=== PATIENT | male | born 1970 | race Caucasian/White ===

== ENCOUNTER 2017-07-14 23:16 | Inpatient (IN) | payer MEDICARE ==
[2017-07-14] MEDS ORDERED: Sodium Chloride 0.9% 1000 ML 1,000 ML ONE ×2 (23:32→23:57)
[2017-07-14] MEDS ORDERED: FEVERALL 650 MG PR ONE (23:40)
--- NOTE | 2017-07-14 23:46 | ERPHSYRPT ---
- History of Present Illness Time Seen by Provider: 07/14/17 23:40 Source: patient, family, EMS Physician History: PATIENT WITH A HISTORY OF TYPE 2 DIABETES, AND ASTHMA FAMILY CALLED EMS FOR SYMPTOMS LETHARGY, FEVER, CHILLS AND DIARRHEA TODAY. HAS HISTORY OF RIGHT FOOT TRANSMETATARSAL AMPUTATION. HE DENIES COUGH, CHEST PAIN, DYSPNEA. Timing/Duration: today Severity: severe Associated Symptoms: chills, fever Allergies/Adverse Reactions: No Known Drug Allergies Allergy (Verified 05/06/17 12:11) Home Medications: Clonazepam 0.5 mg [Klonopin 0.5 MG] 1 mg PO TID PRN 12/11/14 [History] Pravastatin Sodium 20 mg PO HS 12/11/14 [History] Fenofibrate Nanocrystallized [Fenofibrate] 1 tab PO DAILY 05/07/17 [History] Gabapentin 300 mg PO TID 05/07/17 [History] Insulin Degludec [Tresiba Flextouch U-100] 70 units SQ DAILY 05/07/17 [History] Liraglutide [Victoza 2-Jethro] 1.8 units SQ DAILY 05/07/17 [History] Montelukast Sodium [Singulair] 10 mg PO DAILY 05/07/17 [History] Insulin Lispro [Humalog Kwikpen] unit SQ 07/14/17 [History] Hx Tetanus, Diphtheria Vaccination/Date Given: Yes Hx Influenza Vaccination/Date Given: Yes (2010) Hx Pneumococcal Vaccination/Date Given: Yes (2010) - Review of Systems Constitutional: Fever, Chills, Lethargy Eyes: No Symptoms Ears, Nose, & Throat: No Symptoms Respiratory: No Symptoms Cardiac: No Symptoms Abdominal/Gastrointestinal: No Symptoms Genitourinary Symptoms: No Symptoms Musculoskeletal: No Symptoms Neurological: Lethargy Psychological: No Symptoms Endocrine: No Symptoms - Past Medical History Pertinent Past Medical History: Yes Neurological History: Peripheral Neuropathy ENT History: No Pertinent History Cardiac History: Peripheral Vascular Disease Respiratory History: Pneumonia Endocrine Medical History: Diabetes Type II Musculoskeletal History: Other GI Medical History: No Pertinent History, Polyps History: No Pertinent History Psycho-Social History: Anxiety, Depression Male Reproductive Disorders: Other Other Medical History: RIGHT FOREFOOT AMPUTATION 2014 - Past Surgical History Past Surgical History: Yes Neuro Surgical History: No Pertinent History Cardiac: No Pertinent History Respiratory: No Pertinent History Gastrointestinal: No Pertinent History Genitourinary: No Pertinent History Musculoskeletal: No Pertinent History Male Surgical History: No Pertinent History Other Surgical History: Right heel cut open down to the bone. - Social History Smoking Status: Former smoker Exposure to second hand smoke: Yes Drug Use: none - Nursing Vital Signs Nursing Vital Signs: Initial Vital Signs Temperature 102.8 F 07/14/17 23:22 Pulse Rate 127 H 07/14/17 23:22 Respiratory Rate 24 07/14/17 23:22 Blood Pressure 144/84 07/14/17 23:22 O2 Sat by Pulse Oximetry 97 07/14/17 23:22 Pain Scale Pain Intensity 0 - Physical Exam General Appearance: lethargy, other (ALERT TO NAME) Ears, Nose, Throat Exam: normal ENT inspection Neck Exam: normal inspection Respiratory Exam: normal breath sounds Cardiovascular Exam: normal heart sounds, tachycardia Gastrointestinal/Abdomen Exam: soft, normal bowel sounds (NONTENDER) Back Exam: normal inspection, normal range of motion Extremity Exam: other (RIGHT FOOT ERYTHEMATOUS, MARKED WARMTH DECUBITUS 3CM X 3CM DORSAL TRANSMETATARAL SITE) Neurologic Exam: alert (TO PERSON AND PLACE) SpO2 Interpretation: normal, O2 applied SpO2: 94 Ordered Tests: Active Orders 24 hr Category Date Time Status Bedrest ROUTINE Activity 07/15/17 02:56 Ordered Accucheck ACHS Care 07/15/17 02:53 Ordered Accucheck STAT Care 07/14/17 23:40 Active Admission/Status Order ROUTINE Care 07/15/17 02:54 Ordered Call Admit Doctor for Orders ON ADMISSION Care 07/15/17 02:56 Ordered Emergency Veterinarian STAT Care 07/14/17 23:41 Active Cath [Catheter-[place]] STAT Care 07/15/17 01:21 Active Code Status Order ROUTINE Care 07/15/17 02:54 Ordered EKG-ER Only STAT Care 07/14/17 23:40 Active IV Care Q6H Care 07/15/17 02:54 Ordered IV Insertion STAT Care 07/14/17 23:40 Active IV Insertion-2nd Peripheral STAT Care 07/14/17 23:40 Active Neuro Checks Q2H Care 07/15/17 02:53 Ordered Oxygen-ED Only NASAL CANNULA 2 lpm Care 07/14/17 23:40 Active Pulse Oximetry (ED) STAT Care 07/14/17 23:40 Active Telemetry ROUTINE Care 07/15/17 02:53 Ordered Vital Signs .[id number],q3omx2,q1hx2,[id number] Care 07/15/17 02:53 Ordered 2000 Calorie ADA Diet 07/15/17 Breakfast Ordered CHEST 1 VIEW (PORTABLE) Stat Exams 07/14/17 23:41 Taken ARTERIAL BLOOD GASES Stat Lab 07/14/17 23:51 Completed BLOOD CULTURE Stat Lab 07/14/17 23:50 Received CBC W DIFF Stat Lab 07/14/17 23:45 Completed CMP Stat Lab 07/14/17 23:45 Completed CULTURE,URINE Stat Lab 07/14/17 23:45 Received CULTURE,WOUND Stat Lab 07/15/17 02:01 Ordered Glucose Stat Lab 07/15/17 02:46 Ordered Lactic Acid Stat Lab 07/14/17 23:51 Completed Lactic Acid Stat Lab 07/15/17 02:22 Results MAGNESIUM Stat Lab 07/15/17 00:00 Completed Manual Differential NC Stat Lab 07/14/17 23:45 Completed PHOSPHOROUS Stat Lab 07/15/17 00:00 Completed PROTIME WITH INR Stat Lab 07/15/17 00:00 Completed TROPONIN Q3H Lab 07/15/17 00:00 Completed TROPONIN Q3H Lab 07/15/17 04:15 Ordered TROPONIN Q3H Lab 07/15/17 07:15 Ordered TROPONIN Q3H Lab 07/15/17 10:15 Ordered TROPONIN Q3H Lab 07/15/17 13:15 Ordered Oxygen NASAL CANNULA 2 lpm RT 07/15/17 02:53 Ordered Transfer Order Routine Transfer 07/15/17 Ordered Medication Summary Generic Name Dose Route Start Last Admin Trade Name Freq PRN Reason Stop Dose Admin Acetaminophen 650 mg 07/15/17 02:53 Tylenol 325 Mg PO 08/14/17 02:52 Q4H PRN PRN PAIN AND/OR FEVER Sodium Chloride 1,000 mls @ 999 mls/hr 07/14/17 23:45 07/15/17 00:07 Sodium Chloride 0.9% 1000 Ml IV 07/15/17 02:45 999 mls/hr .Q1H1M OLEGARIO Administration Insulin Human Regular 100 101 mls @ 10.1 mls/hr 07/15/17 01:15 07/15/17 01:17 units/ Sodium Chloride IV 08/14/17 01:14 10 units/hr .Q10H OLEGARIO 10.1 mls/hr 10 UNITS/HR Administration Sodium Chloride 1,000 mls @ 500 mls/hr 07/15/17 01:15 07/15/17 01:56 Sodium Chloride 0.9% 1000 Ml IV 08/14/17 01:14 500 mls/hr .Q2H OLEGARIO Administration Insulin Human Regular 100 101 mls @ 10.07 mls/hr 07/15/17 02:59 units/ Sodium Chloride IV 08/14/17 02:58 .Q10H2M PRN DKA/HYPERGYCEMIA Protocol 0.1 UNITS/KG/HR Piperacillin Sod/Tazobactam 100 mls @ 100 mls/hr 07/15/17 06:00 Sod 4.5 gm/ Dextrose IV 08/14/17 05:59 Q8HT OLEGARIO Sodium Chloride 1,000 mls @ 200 mls/hr 07/15/17 03:00 Sodium Chloride 0.9% 1000 Ml IV 08/14/17 02:59 .Q5H [facility] Vancomycin HCl 1 gm/ Sodium 250 mls @ 167 mls/hr 07/15/17 03:30 Chloride IV 08/14/17 03:29 Q24H [facility] Montelukast Sodium 10 mg 07/15/17 10:00 Singulair 10 Mg PO 08/14/17 09:59 DAILY [facility] Pantoprazole Sodium 40 mg 07/15/17 10:00 Protonix 40 Mg Iv IV 08/14/17 09:59 Q24H10 OLEGARIO Discontinued Medications Generic Name Dose Route Start Last Admin Trade Name Freq PRN Reason Stop Dose Admin Acetaminophen 650 mg 07/14/17 23:40 07/15/17 00:02 Feverall 650 Mg NC 07/14/17 23:41 650 mg STAT ONE Administration Acetaminophen Confirm 07/15/17 00:00 Feverall 650 Mg Administered 07/15/17 00:01 Dose 650 mg .ROUTE .STK-MED ONE Sodium Chloride Confirm 07/14/17 23:32 Sodium Chloride 0.9% 1000 Ml Administered 07/14/17 23:33 Dose 1,000 mls @ ud .ROUTE .STK-MED ONE Piperacillin Sod/Tazobactam 100 mls @ 200 mls/hr 07/15/17 00:43 07/15/17 00: 59 Sod 4.5 gm/ Dextrose IV 07/15/17 01:12 200 mls/hr STAT ONE Administration Dextrose Confirm 07/15/17 00:51 D5w 100ml Mini Bag 100 Ml Administered 07/15/17 00:52 Dose 100 mls @ ud IV .STK-MED ONE Sodium Chloride Confirm 07/15/17 01:03 Sodium Chloride 0.9% 100 Ml Ivpb Administered 07/15/17 01:04 Dose 100 mls @ ud IV .STK-MED ONE Sodium Chloride 1,000 mls @ 500 mls/hr 07/15/17 01:03 07/15/17 01:12 Sodium Chloride 0.9% 1000 Ml IV 07/15/17 03:02 500 mls/hr .Q2H STA Administration Ibuprofen 600 mg 07/15/17 01:50 07/15/17 01:58 Motrin 600 Mg PO 07/15/17 01:51 600 mg STAT ONE Administration Ibuprofen Confirm 07/15/17 01:57 Motrin 600 Mg Administered 07/15/17 01:58 Dose 600 mg .ROUTE .STK-MED ONE Insulin Human Regular 10 unit 07/15/17 01:00 07/15/17 01:17 Novolin R IV 07/15/17 01:01 10 unit STAT ONE Administration Insulin Human Regular Confirm 07/15/17 01:02 Novolin R Administered 07/15/17 01:03 Dose 100 unit .ROUTE .STK-MED ONE Insulin Human Regular Confirm 07/15/17 01:08 Novolin R Administered 07/15/17 01:09 Dose 10 unit .ROUTE .STK-MED ONE Ondansetron HCl Confirm 07/15/17 01:03 Zofran 4 Mg/2 Ml Vial Administered 07/15/17 01:04 Dose 4 mg .ROUTE .STK-MED ONE Ondansetron HCl 4 mg 07/15/17 01:05 07/15/17 01:06 Zofran 4 Mg/2 Ml Vial IV 07/15/17 01:06 4 mg STAT ONE Administration Piperacillin Sod/Tazobactam Sod Confirm 07/15/17 00:49 Zosyn Inj Administered 07/15/17 00:50 Dose 4.5 gm IV .STK-MED ONE Lab/Rad Data: Laboratory Result Diagrams 07/14/17 23:45 07/14/17 23:45 Laboratory Results 07/15/17 07/15/17 07/15/17 Range/Units 02:30 02:22 00:00 WBC (4.0-10.5) K/mm3 RBC (4.1-5.6) M/mm3 Hgb (12.5-18.0) gm/dl Hct (42-50) % MCV (78-100) fl MCH (26-32) pg MCHC (32-36) g/dl RDW (11.5-14.0) % Plt Count (150-450) K/mm3 MPV (6-9.5) fl Segmented Neutrophils (36.-66.) % Band Neutrophils (0.0-2.0) % Lymphocytes (Manual) (24-44) % Monocytes (Manual) (0.0-12.0) % Differential Comment Platelet Estimate (NORMAL) Polychromasia Anisocytosis INR (0.8-3.0) Puncture Site pCO2 (35-45) mmHg pO2 (75-100) mmHg Base Excess (-2.0-2.0) O2 Saturation (94-100) g/dF ABG pH (7.35-7.45) ABG HCO3 (22-28) ABG O2 Sat (Measured) (95-100) % Adolph Test A-a Gradient a/A Ratio Hemoglobin Carboxyhemoglobin (0.0-6.9) % THgb Methemoglobin (1.4-1.5) % Temperature C POC O2 Flow Rate % Sodium (136-145) mEq/L Potassium (3.5-5.1) mEq/L Chloride (98-107) mEq/L Carbon Dioxide (21-32) mEq/L Anion Gap (5-15) MEQ/L BUN (9-20) mg/dL Creatinine (0.55-1.30) mg/dl Estimated GFR ML/MIN Glucose 941 H* (70-110) MG/DL Lactic Acid 4.3 H (0.4-2.0) Calcium (8.5-10.1) mg/dL Phosphorus 4.7 (2.6-4.7) mg/dL Magnesium (1.8-2.4) mg/dL Total Bilirubin (0.2-1.0) mg/dL AST (15-37) U/L ALT (12-78) U/L Alkaline Phosphatase (46-116) U/L Troponin I (0.000-0.056) ng/ml Serum Total Protein (6.4-8.2) gm/dL Albumin (3.4-5.0) g/dL Influenza Type A Ag (NEGATIVE) Influenza Type B Ag (NEGATIVE) RSV (PCR) (Negative) 07/15/17 07/15/17 07/15/17 Range/Units 00:00 00:00 00:00 WBC (4.0-10.5) K/mm3 RBC (4.1-5.6) M/mm3 Hgb (12.5-18.0) gm/dl Hct (42-50) % MCV (78-100) fl MCH (26-32) pg MCHC (32-36) g/dl RDW (11.5-14.0) % Plt Count (150-450) K/mm3 MPV (6-9.5) fl Segmented Neutrophils (36.-66.) % Band Neutrophils (0.0-2.0) % Lymphocytes (Manual) (24-44) % Monocytes (Manual) (0.0-12.0) % Differential Comment Platelet Estimate (NORMAL) Polychromasia Anisocytosis INR 1.41 (0.8-3.0) Puncture Site pCO2 (35-45) mmHg pO2 (75-100) mmHg Base Excess (-2.0-2.0) O2 Saturation (94-100) g/dF ABG pH (7.35-7.45) ABG HCO3 (22-28) ABG O2 Sat (Measured) (95-100) % Adolph Test A-a Gradient a/A Ratio Hemoglobin Carboxyhemoglobin (0.0-6.9) % THgb Methemoglobin (1.4-1.5) % Temperature C POC O2 Flow Rate % Sodium (136-145) mEq/L Potassium (3.5-5.1) mEq/L Chloride (98-107) mEq/L Carbon Dioxide (21-32) mEq/L Anion Gap (5-15) MEQ/L BUN (9-20) mg/dL Creatinine (0.55-1.30) mg/dl Estimated GFR ML/MIN Glucose (70-110) MG/DL Lactic Acid (0.4-2.0) Calcium (8.5-10.1) mg/dL Phosphorus (2.6-4.7) mg/dL Magnesium 2.9 H (1.8-2.4) mg/dL Total Bilirubin (0.2-1.0) mg/dL AST (15-37) U/L ALT (12-78) U/L Alkaline Phosphatase (46-116) U/L Troponin I < 0.017 (0.000-0.056) ng/ml Serum Total Protein (6.4-8.2) gm/dL Albumin (3.4-5.0) g/dL Influenza Type A Ag (NEGATIVE) Influenza Type B Ag (NEGATIVE) RSV (PCR) (Negative) 07/14/17 07/14/17 07/14/17 Range/Units 23:51 23:51 23:50 WBC (4.0-10.5) K/mm3 RBC (4.1-5.6) M/mm3 Hgb (12.5-18.0) gm/dl Hct (42-50) % MCV (78-100) fl MCH (26-32) pg MCHC (32-36) g/dl RDW (11.5-14.0) % Plt Count (150-450) K/mm3 MPV (6-9.5) fl Segmented Neutrophils (36.-66.) % Band Neutrophils (0.0-2.0) % Lymphocytes (Manual) (24-44) % Monocytes (Manual) (0.0-12.0) % Differential Comment Platelet Estimate (NORMAL) Polychromasia Anisocytosis INR (0.8-3.0) Puncture Site LEFT BRACHIAL pCO2 56 H (35-45) mmHg pO2 71 L (75-100) mmHg Base Excess 4.2 H (-2.0-2.0) O2 Saturation 93.6 L (94-100) g/dF ABG pH 7.35 (7.35-7.45) ABG HCO3 30.9 H* (22-28) ABG O2 Sat (Measured) 97.0 (95-100) % Adolph Test NOT APPLICABLE A-a Gradient 116 a/A Ratio 0.38 Hemoglobin 10.9 Carboxyhemoglobin 2.3 (0.0-6.9) % THgb Methemoglobin 1.2 L (1.4-1.5) % Temperature 37.0 C POC O2 Flow Rate 36 % Sodium (136-145) mEq/L Potassium 4.1 (3.5-5.1) mEq/L Chloride (98-107) mEq/L Carbon Dioxide (21-32) mEq/L Anion Gap (5-15) MEQ/L BUN (9-20) mg/dL Creatinine (0.55-1.30) mg/dl Estimated GFR ML/MIN Glucose (70-110) MG/DL Lactic Acid 2.4 H (0.4-2.0) Calcium (8.5-10.1) mg/dL Phosphorus (2.6-4.7) mg/dL Magnesium (1.8-2.4) mg/dL Total Bilirubin (0.2-1.0) mg/dL AST (15-37) U/L ALT (12-78) U/L Alkaline Phosphatase (46-116) U/L Troponin I (0.000-0.056) ng/ml Serum Total Protein (6.4-8.2) gm/dL Albumin (3.4-5.0) g/dL Influenza Type A Ag NEGATIVE (NEGATIVE) Influenza Type B Ag NEGATIVE (NEGATIVE) RSV (PCR) NEGATIVE (Negative) 07/14/17 07/14/17 Range/Units 23:45 23:45 WBC 6.0 (4.0-10.5) K/mm3 RBC 4.96 (4.1-5.6) M/mm3 Hgb 12.7 (12.5-18.0) gm/dl Hct 46.6 (42-50) % MCV 94.0 (78-100) fl MCH 25.6 L (26-32) pg MCHC 27.3 L (32-36) g/dl RDW 15.6 H (11.5-14.0) % Plt Count 192 (150-450) K/mm3 MPV 12.9 H (6-9.5) fl Segmented Neutrophils 81 H (36.-66.) % Band Neutrophils 3 H (0.0-2.0) % Lymphocytes (Manual) 9 L (24-44) % Monocytes (Manual) 7 (0.0-12.0) % Differential Comment ABNORMAL Platelet Estimate NORMAL (NORMAL) Polychromasia 1+ Anisocytosis 1+ INR (0.8-3.0) Puncture Site pCO2 (35-45) mmHg pO2 (75-100) mmHg Base Excess (-2.0-2.0) O2 Saturation (94-100) g/dF ABG pH (7.35-7.45) ABG HCO3 (22-28) ABG O2 Sat (Measured) (95-100) % Adolph Test A-a Gradient a/A Ratio Hemoglobin Carboxyhemoglobin (0.0-6.9) % THgb Methemoglobin (1.4-1.5) % Temperature C POC O2 Flow Rate % Sodium 134 L (136-145) mEq/L Potassium 5.1 (3.5-5.1) mEq/L Chloride 90 L (98-107) mEq/L Carbon Dioxide 32.5 H (21-32) mEq/L Anion Gap 16.4 H (5-15) MEQ/L BUN 32 H (9-20) mg/dL Creatinine 2.49 H (0.55-1.30) mg/dl Estimated GFR 30 ML/MIN Glucose 1390 H* (70-110) MG/DL Lactic Acid (0.4-2.0) Calcium 9.7 (8.5-10.1) mg/dL Phosphorus (2.6-4.7) mg/dL Magnesium (1.8-2.4) mg/dL Total Bilirubin 0.30 (0.2-1.0) mg/dL AST 14 L (15-37) U/L ALT 18 (12-78) U/L Alkaline Phosphatase 134 H (46-116) U/L Troponin I (0.000-0.056) ng/ml Serum Total Protein 8.2 (6.4-8.2) gm/dL Albumin 2.4 L (3.4-5.0) g/dL Influenza Type A Ag (NEGATIVE) Influenza Type B Ag (NEGATIVE) RSV (PCR) (Negative) - Progress Progress Note: 07/15/17 01:31 PLACED ONTO SEPSIS PROTOCOL AT 2340 NORMAL SALINE 100MG/30ML. INFUSED 3LITERS OVER 1 HOUR, LACTIC ACID 2.4, ZOSYN 4.5GM, VANCOMYCIN 1GM IVPB AFTER 2 SETS OF BLOOD CULTURES OBTAINED, GLUCOSE -1390 GIVEN INSULIN REGULAR 10 UNITS IV BOLUS FOLLOWED BY INSULIN REGULAR INFUSION AT 10 UNITS/HR. - Departure Time of Disposition: 01:15 Departure Disposition: In-patient Admission Clinical Impression: HYPEROSMOLAR HYPERGLYCEMIA STATE, SEPSIS, INFECTED RIGHT FOOT DECUBITUS ULCER Condition: Critical Critical Care Time: No Critical Care Time(excluding separately billable procedures): ___ minutes (90) Referrals: DEYVI ARDON [Primary Care Provider] -
[2017-07-14] MEDS: Sodium Chloride 0.9% 1000 ML 1,000 ML IV SCH (23:56)
[2017-07-15] MEDS ORDERED: FEVERALL 650 MG ONE
[2017-07-15 00:01] LABS: Mean Corpuscular Hemoglobin 25.6 pg (26-32); Mean Platelet Volume 12.9 fl (6-9.5); Platelet Count 192 K/mm3 (150-450); Red Blood Count 4.96 M/mm3 (4.1-5.6); Red Cell Distribution Width 15.6 % (11.5-14.0)
[2017-07-15 00:02] LABS: A-aADO2 116; ARTERIAL BLOOD GAS BASE EXCESS 4.2 (-2.0-2.0); ARTERIAL BLOOD GAS FIO2 36 %; ARTERIAL BLOOD GAS PO2 71 mmHg (75-100); ARTERIAL BLOOD GAS pH 7.35 (7.35-7.45)
[2017-07-15 00:05] LABS: Lactic Acid 2.4 (0.4-2.0)
[2017-07-15] MEDS: Sodium Chloride 0.9% 1000 ML 1,000 ML IV SCH (00:07)
[2017-07-15 00:28] LABS: ALBUMIN 2.4 g/dL (3.4-5.0); ANION GAP 16.4 MEQ/L (5-15); BILIRUBIN,TOTAL 0.3 mg/dL (0.2-1.0); Carbon Dioxide 32.5 mEq/L (21-32); Potassium 5.1 mEq/L (3.5-5.1); Total Protein 8.2 gm/dL (6.4-8.2)
[2017-07-15] MEDS ORDERED: Sodium Chloride 0.9% 1000 ML 2,000 ML ONE (00:42)
[2017-07-15] MEDS ORDERED: Zosyn INJ 4.5 GM in D5w 100ML Mini Bag 100 ML 100 ML IV ONE (00:43)
[2017-07-15] MEDS ORDERED: Zosyn INJ IV ONE (00:49)
[2017-07-15] MEDS ORDERED: D5w 100ML Mini Bag 100 ML 100 ML IV ONE (00:51)
[2017-07-15] MEDS ORDERED: NovoLIN R IV ONE (01:00)
[2017-07-15] MEDS ORDERED: NovoLIN R ONE ×2 (01:02→01:08)
[2017-07-15] MEDS ORDERED: Zofran 4 MG/2 ML VIAL ONE (01:03)
[2017-07-15] MEDS ORDERED: Sodium Chloride 0.9% 1000 ML 1,000 ML IV STA ×2 (01:03→09:36)
[2017-07-15] MEDS ORDERED: Sodium Chloride 0.9% 100 ML IVPB 100 ML IV ONE (01:03)
[2017-07-15] MEDS ORDERED: Zofran 4 MG/2 ML VIAL IV ONE (01:05)
[2017-07-15] MEDS ORDERED: NOVOLIN R INSULIN (FOR DRIPS)** 100 UNITS in Sodium Chloride 0.9% 100 ML IVPB 100 ML IV SCH (01:15)
[2017-07-15] MEDS ORDERED: Sodium Chloride 0.9% 1000 ML 1,000 ML IV SCH ×4 (01:15→10:00)
[2017-07-15 01:22] LABS: INR 1.41 (0.8-3.0); PROTIME 15.7 SECONDS (8.83-12.87)
[2017-07-15] MEDS ORDERED: MOTRIN 600 MG PO ONE (01:50)
[2017-07-15] MEDS ORDERED: MOTRIN 600 MG ONE (01:57)
[2017-07-15 02:28] LABS: Lactic Acid 4.3 (0.4-2.0)
[2017-07-15 02:29] LABS: ANISOCYTOSIS 1+; BAND 3 % (0.0-2.0); Platelet Estimate NORMAL (NORMAL); Polychromasia 1+; Total Cells Counted 100
[2017-07-15] MEDS ORDERED: Sodium Chloride 0.9% 1000 ML 1,000 ML ONE (02:49)
[2017-07-15] MEDS ORDERED: NOVOLIN R INSULIN (FOR DRIPS)** 100 UNITS in Sodium Chloride 0.9% 100 ML IVPB 100 ML IV PRN ×2 (02:59→04:26)
[2017-07-15] MEDS ORDERED: VANCOCIN 1 GM VIAL*** 1 GM in Sodium Chloride 0.9% 250 ML 250 ML IV SCH (03:30)
[2017-07-15 04:35] LABS: Lactic Acid 2.8 (0.4-2.0)
[2017-07-15 05:05] LABS: ANION GAP 12.4 MEQ/L (5-15); Carbon Dioxide 30.1 mEq/L (21-32); Potassium 3.7 mEq/L (3.5-5.1)
[2017-07-15] MEDS ORDERED: Zosyn INJ 4.5 GM in D5w 100ML Mini Bag 100 ML 100 ML IV SCH (06:00)
[2017-07-15 06:13] LABS: ANION GAP 11.4 MEQ/L (5-15); Potassium 3.7 mEq/L (3.5-5.1)
[2017-07-15] MEDS ORDERED: Vancomycin 1GM/ Ns 250ML*** 250 ML IV ONE (06:28)
[2017-07-15 06:59] LABS: Carbon Dioxide 31.9 mEq/L (21-32); Potassium 3.9 mEq/L (3.5-5.1)
[2017-07-15] MEDS ORDERED: POTASSIUM CHLORIDE IV ONE (07:15)
[2017-07-15] MEDS ORDERED: SODIUM CHLORIDE 0.9% IV ONE (07:15)
[2017-07-15] MEDS: Zosyn INJ 4.5 GM in D5w 100ML Mini Bag 100 ML 100 ML IV SCH ×4 (07:33→23:40)
[2017-07-15 07:55] LABS: ANION GAP 10.8 MEQ/L (5-15); Carbon Dioxide 32.6 mEq/L (21-32); Potassium 3.7 mEq/L (3.5-5.1)
--- NOTE | 2017-07-15 08:29 | PCM.HP ---
History of Present Illness - Chief Complaint Chief Complaint: Hyperosmolar Hyerglycemia State, Sepsis, Infection right foot/ decubitus History of Present Illness: is a 46 year old male pt of mine from [facility], known poorly controlled diabetic, who came in to ER via EMS yesterday. Apparently someone he lives with called the ambulance, but they were not present in ER. He was found to have hyperosmoloar nonketotic state and sepsis with a BS of 1396 and a fever over 102. He was started on IV zosyn and vancomycin with an insulin drip. He was given 6L of NS in the ER and admitted to the ICU. This morning he will answer questions, he is oriented to place, but not completely to time (knows it is july but not the day). He does name me. He is thirsty but denies any pain. - Review of Systems All Other Systems: Unable due to condition (disorientation) Medications & Allergies Home Medications: Home Medication List Clonazepam 0.5 mg [Klonopin 0.5 MG] 1 mg PO TID PRN 12/11/14 [History Confirmed 07/15/17] Pravastatin Sodium 20 mg PO HS 12/11/14 [History Confirmed 07/14/17] Fenofibrate Nanocrystallized [Fenofibrate] 1 tab PO DAILY 05/07/17 [History Confirmed 07/15/17] Gabapentin 300 mg PO TID 05/07/17 [History Confirmed 07/14/17] Insulin Degludec [Tresiba Flextouch U-100] units SQ DAILY 05/07/17 [History Confirmed 05/15/17] Liraglutide [Victoza 2-Jethro] 1.8 units SQ DAILY 05/07/17 [History Confirmed 07/14] Montelukast Sodium [Singulair] 10 mg PO DAILY 05/07/17 [History Confirmed ] Insulin Lispro [Humalog Kwikpen] unit SQ 07/14/17 [History] Allergies/Adverse Reactions: Allergies Allergy/AdvReac Type Severity Reaction Status Date / Time No Known Drug Allergies Allergy Verified 05/06/17 12:11 - Past Medical History Past Medical History: Yes Neurological History: Peripheral Neuropathy ENT History: No Pertinent History Cardiac History: Peripheral Vascular Disease Respiratory History: Pneumonia Endocrine Medical History: Diabetes Type II Musculoskelatal History: Other GI Medical History: No Pertinent History, Polyps History: No Pertinent History Pyscho-Social History: Anxiety, Depression Male Reproductive Disorders: Other Comment: RIGHT FOREFOOT AMPUTATION 2015 - Past Surgical History Past Surgical History: Yes Neuro Surgical History: No Pertinent History Cardiac History: No Pertinent History Respiratory Surgery: No Pertinent History GI Surgical History: No Pertinent History Genitourinary Surgical Hx: No Pertinent History Musculskeletal Surgical Hx: No Pertinent History Male Surgical History: No Pertinent History Other Surgical History: Right heel cut open down to the bone. - Social History Smoking Status: Former smoker How long have you smoked: years ago Exposure to second hand smoke: No Alcohol: None Drug Use: none - Physical Exam Vital Signs: Vital Signs - 24 hr Temp Pulse Resp BP Pulse Ox 07/15/17 07:08 96 07/15/17 07:04 90 L 07/15/17 06:59 97 07/15/17 05:31 99 07/15/17 04:43 100.2 F 93 H 27 H 124/73 98 07/15/17 03:14 94 L 07/15/17 02:43 101.6 F 104 H 28 H 117/78 95 07/15/17 02:04 102.3 F 111 H 21 121/70 97 07/15/17 00:55 102.7 F 118 H 20 145/86 97 07/15/17 00:14 123 H 29 H 163/86 95 07/15/17 00:05 97 07/14/17 23:22 102.8 F 127 H 24 144/84 97 Oxygen-Last 24 hours O2 Percentage 2 Liters = 28% O2 Percentage 3 Liters = 32% O2 Percentage 4 Liters = 36% O2 Percentage 4 Liters = 36% O2 Percentage 4 Liters = 36% O2 Percentage 4 Liters = 36% General Appearance: no apparent distress Neurologic Exam: alert, cooperative, disoriented Eye Exam: eyes nml inspection, other (PERRL), No scleral icterus Ears, Nose, Throat Exam: moist mucous membranes Neck Exam: normal inspection, non-tender, No lymphadenopathy Respiratory Exam: normal breath sounds, lungs clear, No crackles/rales, No rhonchi, No wheezing Cardiovascular Exam: regular rate/rhythm, normal heart sounds, No murmur Gastrointestinal/Abdomen Exam: soft, No tenderness, No distention, No guarding, No rebound Extremity Exam: normal inspection, No pedal edema, No swelling Skin Exam: normal color, warm, dry Results - Labs Lab/Micro Results: Accuchecks Date 07/15/17 Date 07/15/17 Date 07/15/17 Time 06:30 Time 05:30 Time 04:30 Lab Results-Last 24 Hours 07/15/17 07/15/17 07/15/17 Range/Units 04:27 04:27 04:28 Sodium 147 H (136-145) mEq/L Potassium 3.7 (3.5-5.1) mEq/L Chloride 108 H (98-107) mEq/L Carbon Dioxide 30.1 (21-32) mEq/L Anion Gap 12.4 (5-15) MEQ/L BUN 26 H (9-20) mg/dL Creatinine 1.94 H (0.55-1.30) mg/dl Estimated GFR 40 ML/MIN Glucose 676 H* (70-110) MG/DL Lactic Acid 2.8 H (0.4-2.0) Calcium 8.5 (8.5-10.1) mg/dL Troponin I < 0.017 (0.000-0.056) ng/ml 07/15/17 07/15/17 Range/Units 05:25 06:18 Sodium 149 H 150 H* (136-145) mEq/L Potassium 3.7 3.9 (3.5-5.1) mEq/L Chloride 109 H 111 H (98-107) mEq/L Carbon Dioxide 32.0 31.9 (21-32) mEq/L Anion Gap 11.4 11.0 (5-15) MEQ/L BUN 25 H 26 H (9-20) mg/dL Creatinine 1.92 H 1.94 H (0.55-1.30) mg/dl Estimated GFR 40 40 ML/MIN Glucose 593 H* 496 H (70-110) MG/DL Lactic Acid (0.4-2.0) Calcium 8.5 8.6 (8.5-10.1) mg/dL Troponin I (0.000-0.056) ng/ml Accuchecks Date 07/15/17 Date 07/15/17 Date 07/15/17 Time 06:30 Time 05:30 Time 04:30 - Other Procedures and Tests Respiratory Therapy 07/15/17 02:53 Oxygen NASAL CANNULA 2 lpm Assessment/Plan (1) Hyperosmolar non-ketotic state in patient with type 2 diabetes mellitus Current Visit: Yes Status: Acute Assessment & Plan: BS down just under 500, still on insulin drip but it was decreased so the BS does not decrease too quickly. BMP q 2h. Fluids were decreased this morning to 100 cc/hr, but will increase NS back up to 250cc/hr after a 500 cc bolus. He was given 6L fluid total in the ER. Code(s): E11.01 - TYPE 2 DIABETES MELLITUS WITH HYPEROSMOLARITY WITH COMA (2) Sepsis Current Visit: Yes Status: Acute Qualifiers: Sepsis type: sepsis due to unspecified organism Qualified Code(s): A41.9 - Sepsis, unspecified organism Assessment & Plan: Unsure the source, possibly the foot wounds. On IV vancomycin and zosyn. (3) Hypernatremia Current Visit: Yes Status: Acute Assessment & Plan: corrected Na this morning is actually 159. Due to his dehydration due to hyperglycemia. 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 - Non-pressure chronic ulcer of other part of unspecified foot with unspecified severity; L97.509 - Non-pressure chronic ulcer of other part of unspecified foot with unspecified severity; L97.509 - Non -pressure chronic ulcer of other part of unspecified foot with unspecified severity; L97.509 - Non-pressure chronic ulcer of other part of unspecified foot with unspecified severity; Z79.4 - long term (current) use of insulin; Z79.4 - correction (current) use of insulin; Z79.4 - long term (current) use of insulin; Z79.4 - correction (current) use of insulin (5) Diabetic infection of right foot Current Visit: No Status: Acute Code(s): E11.69 - TYPE 2 DIABETES MELLITUS WITH OTHER SPECIFIED COMPLICATION; L08.9 - LOCAL INFECTION OF THE SKIN AND SUBCUTANEOUS TISSUE, UNSP
[2017-07-15 08:35] LABS: Lactic Acid 2.4 (0.4-2.0)
--- NOTE | 2017-07-15 09:23 | XRAY ---
Indication: Possible sepsis. Comparison: July 09, 2015. Portable chest unchanged again markedly underinflated with bibasilar atelectasis. Heart is not enlarged. Bony thorax intact. No new/acute findings.
[2017-07-15] MEDS: ENOXAPARIN SODIUM SQ SCH (10:10)
[2017-07-15] MEDS: PROTONIX 40 MG IV IV SCH (10:10)
[2017-07-15] MEDS: NEURONTIN 300 MG PO SCH ×3 (10:10→21:22)
[2017-07-15] MEDS: Singulair 10 MG PO SCH (10:10)
[2017-07-15 10:16] LABS: ANION GAP 10.3 MEQ/L (5-15); Carbon Dioxide 32.9 mEq/L (21-32); Potassium 3.7 mEq/L (3.5-5.1)
[2017-07-15] MEDS: Dextrose 5% -0.45 NaCl 1000 ML 1,000 ML IV SCH ×2 (12:23→20:42)
[2017-07-15] MEDS: NovoLOG Insulin SQ SCH ×4 (12:24→15:23)
[2017-07-15 14:17] LABS: Carbon Dioxide 29.3 mEq/L (21-32); Potassium 3.9 mEq/L (3.5-5.1)
[2017-07-15] MEDS: NovoLOG Insulin SQ PRN ×5 (16:28→20:15)
[2017-07-15 16:40] LABS: ANION GAP 9.6 MEQ/L (5-15); Carbon Dioxide 30.1 mEq/L (21-32); Potassium 3.9 mEq/L (3.5-5.1)
[2017-07-15] MEDS: VANCOCIN 1 GM VIAL*** 1 GM in Sodium Chloride 0.9% 250 ML 250 ML IV SCH (16:56)
[2017-07-15 21:02] LABS: ANION GAP 10.1 MEQ/L (5-15); Carbon Dioxide 29.4 mEq/L (21-32); Potassium 3.7 mEq/L (3.5-5.1)
[2017-07-15] MEDS: ZOCOR 20MG PO SCH (21:22)
[2017-07-15] MEDS ORDERED: NON-FORMULARY ITEM (Pravastatin Sodium [Pravastatin Sodium] 20 MG) PO SCH (22:00)
[2017-07-15] MEDS: TYLENOL 325 MG PO PRN (23:34)
[2017-07-16] MEDS: NovoLOG Insulin SQ PRN ×7 (01:16→23:08)
[2017-07-16 03:29] LABS: ANION GAP 7.9 MEQ/L (5-15); Carbon Dioxide 30.3 mEq/L (21-32); Potassium 4.1 mEq/L (3.5-5.1)
[2017-07-16] MEDS: Dextrose 5% -0.45 NaCl 1000 ML 1,000 ML IV SCH (04:50)
[2017-07-16] MEDS: VANCOCIN 1 GM VIAL*** 1 GM in Sodium Chloride 0.9% 250 ML 250 ML IV SCH ×2 (06:15→17:05)
--- NOTE | 2017-07-16 07:44 | CONS ---
CONSULT DATE: 07/15/2017 REASON FOR CONSULT: Right lower extremity. HISTORY: The patient is a 46 year-old diabetic long-standing, has had a transmetatarsal amputation of the foot some time ago and has had multiple neuropathic ulcers of the foot at least three major ones. One on the palm and one at the heel. He has had multiple interventions including antibiotic beads. Recently he apparently had antibiotic foam. He now has nonhealing skin over the first metatarsal shaft. The area that is nonhealing is about 4 x 4 cm and it is open. There is proud flesh underneath this bulging. He has had neuropathic ulcer on the lateral aspect at the same area and then he had a neuropathic ulcer over the heel and there is skin coverage at the moment but it is certainly not normal. He does not have any palpable distal pulses. He looks like he would be at least a candidate for below knee amputation. It may heal. His skin is apparently has had persistent osteomyelitis of most of the foot. He has been admitted diabetic ketoacidosis and is improving at this time. IMPRESSION: 1) Long-standing diabetes with current episode of diabetic ketoacidosis and hyperosmolarity in the ICU. 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 PLAN: The patient would clearly benefit from right below knee amputation if he becomes agreeable. There does not really seem to be any additional lesser therapeutic options and this patient seems like he had fairly decent longevity otherwise. It seems prudent to totally resolve this issue so that he can move on with taking care of his diabetes and resume some function.
[2017-07-16] MEDS: Zosyn INJ 4.5 GM in D5w 100ML Mini Bag 100 ML 100 ML IV SCH ×3 (08:14→23:23)
--- NOTE | 2017-07-16 08:49 | PCM.NOTE ---
Date and Time: 07/16/17 0844 Subjective Assessment: This morning pt remembers vomiting prior to admission. Completely oriented. He ate lightly yesterday, does not have a good appetite. Tmax 101.1 today. Does not have any foot pain. - Review of Systems Constitutional: Fever Ears, Nose, & Throat: Throat Pain (new complaint today) Objective Exam General Appearance: no apparent distress, alert Neurologic Exam: oriented x 3, cooperative Skin Exam: normal color, warm, diaphoresis Eye Exam: eyes nml inspection Ears, Nose, Throat Exam: moist mucous membranes, other (scattered tiny white patches on tongue and palate) Respiratory Exam: normal breath sounds, lungs clear, No crackles/rales, No rhonchi, No wheezing Cardiovascular Exam: regular rate/rhythm, normal heart sounds, No murmur Gastrointestinal/Abdomen Exam: soft, normal bowel sounds, No tenderness, No distention Extremity Exam: other (RLE s/p metatarsal amputation; there are at least 3 distinct wound areas on the plantar surface of the remaining foot, with copious amounts of exudate (white/yellow). LLE with one approx 1 cm eschar distal plantar foot proximal to 4th digit. R thumb with two purple discolored (scabbed? ) areas approx 2x3mm each) Back Exam: normal inspection OBJECTIVE DATA Vital Signs: Vital Signs - 24 hr Temp Pulse Resp BP Pulse Ox 07/16/17 08:00 88 07/16/17 05:21 88 27 H 107/69 97 07/16/17 04:00 84 07/16/17 01:33 101.1 F 90 24 114/63 99 07/15/17 23:49 93 H 07/15/17 21:49 100.3 F 07/15/17 19:50 88 24 07/15/17 19:30 98.6 F 87 22 116/70 95 07/15/17 19:05 86 20 95 07/15/17 15:58 90 20 07/15/17 15:30 98.9 F 90 22 134/78 100 07/15/17 12:00 98.3 F 90 16 121/73 99 Oxygen-Last 24 hours O2 Percentage 2 Liters = 28% O2 Percentage 2 Liters = 28% Pain Assessment - Last Documented Pain Scale Used 0-10 Pain Scale Intake and Output: Intake & Output 07/13/17 07/14/17 07/15/17/06/17 11:59 11:59 11:59 11:59 Intake Total 2835 6601 Output Total 1800 1500 Balance 1033 5109 Weight 95.073 kg Lab Results: Accuchecks Date 07/16/1707/16/1707/16/1707/16/1707/15/1707/15/1707/15/1707/15/1707/15/1707/15/1707/15/1707/15/1707/15/1707/15/1707/15/1707/15/1707/15/17 Time 08:25 Time 05:02 Time 03:13 Time 01:17 Time 23:20 Time 21:14 Time 20:18 Time 19:26 Time 16:00 Time 17:00 Time 16:00 Time 15:15 Time 14:31 Time 13:15 Time 12:00 Time 11:00 Time 09:54 Accucheck Value: 198 Accucheck Value: 202 Accucheck Value: 186 Accucheck Value: 168 Accucheck Value: 93 Accucheck Value: 97 Accucheck Value: 161 Accucheck Value: 159 Accucheck Value: 166 Accucheck Value: 174 Accucheck Value: 233 Accucheck Value: 210 Accucheck Value: 326 Accucheck Value: 217 Accucheck Value: 154 Accucheck Value: 140 Accucheck Value: 218 Lab Results-Last 24 Hours 07/15/17 07/15/17 07/15/17 Range/Units 07:15 08:35 10:17 Sodium 152 H* (136-145) mEq/L Potassium 3.7 (3.5-5.1) mEq/L Chloride 112 H (98-107) mEq/L Carbon Dioxide 32.9 H (21-32) mEq/L Anion Gap 10.3 (5-15) MEQ/L BUN 25 H (9-20) mg/dL Creatinine 1.82 H (0.55-1.30) mg/dl Estimated GFR 43 ML/MIN Glucose 302 H (70-110) MG/DL Calcium 8.4 L (8.5-10.1) mg/dL Troponin I < 0.017 < 0.017 (0.000-0.056) ng/ml 07/15/17 07/15/17 07/15/17 Range/Units 13:13 13:20 16:15 Sodium 147 H 146 H (136-145) mEq/L Potassium 3.9 3.9 (3.5-5.1) mEq/L Chloride 111 H 110 H (98-107) mEq/L Carbon Dioxide 29.3 30.1 (21-32) mEq/L Anion Gap 11.0 9.6 (5-15) MEQ/L BUN 25 H 25 H (9-20) mg/dL Creatinine 1.66 H 1.80 H (0.55-1.30) mg/dl Estimated GFR 48 43 ML/MIN Glucose 243 H 238 H (70-110) MG/DL Calcium 7.8 L 7.9 L (8.5-10.1) mg/dL Troponin I < 0.017 (0.000-0.056) ng/ml 07/15/17 07/16/17 Range/Units 20:00 02:55 Sodium 145 142 (136-145) mEq/L Potassium 3.7 4.1 (3.5-5.1) mEq/L Chloride 109 H 108 H (98-107) mEq/L Carbon Dioxide 29.4 30.3 (21-32) mEq/L Anion Gap 10.1 7.9 (5-15) MEQ/L BUN 23 H 22 H (9-20) mg/dL Creatinine 1.68 H 1.80 H (0.55-1.30) mg/dl Estimated GFR 47 43 ML/MIN Glucose 118 H 192 H (70-110) MG/DL Calcium 8.0 L 7.7 L (8.5-10.1) mg/dL Troponin I (0.000-0.056) ng/ml Assessment/Plan (1) Hyperosmolar non-ketotic state in patient with type 2 diabetes mellitus Current Visit: Yes Status: Acute Assessment & Plan: His blood sugars are below 200 and he is tolerating po; He is currently on SS insulin (mod dose) and I changed accuchecks to AC/HS. Code(s): E11.01 - TYPE 2 DIABETES MELLITUS WITH HYPEROSMOLARITY WITH COMA (2) Sepsis Current Visit: Yes Status: Acute Qualifiers: Sepsis type: sepsis due to unspecified organism Qualified Code(s): A41.9 - Sepsis, unspecified organism Assessment & Plan: Due to foot infection. Appreciate surgery consult. They recommended BKA. He becomes visibly upset when discussing this but I agree at this point he would benefit. He has had multiple surgeries and quite recently had antibiotics implanted in the foot by Dr. Bender. (3) Diabetic infection of right foot Current Visit: No Status: Resolved Assessment & Plan: He has a hard time caring for the foot at home as he has many cats and does not follow instructions regarding not being up on the foot and keeping the foot clean. Code(s): E11.69 - TYPE 2 DIABETES MELLITUS WITH OTHER SPECIFIED COMPLICATION; L08.9 - LOCAL INFECTION OF THE SKIN AND SUBCUTANEOUS TISSUE, UNSP (4) Hypernatremia Current Visit: Yes Status: Resolved Code(s): E87.0 - HYPEROSMOLALITY AND HYPERNATREMIA (5) Diabetes mellitus type 2, uncontrolled Current Visit: No Status: Chronic Qualifiers: Diabetes mellitus complication status: with skin complications Diabetes mellitus complication detail: with foot ulcer Diabetes mellitus retirement insulin use: with retirement use Qualified Code(s): E11.621 - Type 2 diabetes mellitus with foot ulcer; E11.65 - Type 2 diabetes mellitus with hyperglycemia; Z79.4 - implementation lead (current) use of insulin; Z79.4 - implementation lead (current) use of insulin; Z79.4 - senior living (current) use of insulin; E11.65 - Type 2 diabetes mellitus with hyperglycemia; E11.65 - Type 2 diabetes mellitus with hyperglycemia; E11.65 - Type 2 diabetes mellitus with hyperglycemia; L97.509 - Non-pressure chronic ulcer of other part of unspecified foot with unspecified severity; L97.509 - Non-pressure chronic ulcer of other part of unspecified foot with unspecified severity; L97.509 - Non-pressure chronic ulcer of other part of unspecified foot with unspecified severity; L97.509 - Non-pressure chronic ulcer of other part of unspecified foot with unspecified severity; Z79.4 - senior living (current) use of insulin Assessment & Plan: He cannot control his blood sugar as he often cannot afford his test strips, medicines, or both. I would love for him to see endocrinology, but transportation and cost are huge issues for him.
[2017-07-16] MEDS: PROTONIX 40 MG IV IV SCH (09:07)
[2017-07-16] MEDS: ENOXAPARIN SODIUM SQ SCH (09:07)
[2017-07-16] MEDS: NEURONTIN 300 MG PO SCH ×3 (09:08→21:01)
[2017-07-16] MEDS: Singulair 10 MG PO SCH (09:09)
[2017-07-16] MEDS ORDERED: Diflucan 100 MG PO ONE (10:00)
[2017-07-16] MEDS ORDERED: FLUCELVAX QUAD 2017-2018 SYR IM ONE (10:00)
[2017-07-16] MEDS ORDERED: CEPACOL SORE THROAT LOZENGE PO PRN (10:56)
[2017-07-16] MEDS: TYLENOL 325 MG PO PRN (11:01)
[2017-07-16] MEDS: NovoLOG Insulin SQ SCH (17:36)
[2017-07-16] MEDS: ZOCOR 20MG PO SCH (21:01)
[2017-07-17] MEDS ORDERED: TROUGH DRUG LEVELS IJ ONE (05:30)
[2017-07-17] MEDS: VANCOCIN 1 GM VIAL*** 1 GM in Sodium Chloride 0.9% 250 ML 250 ML IV SCH ×2 (06:12→17:06)
[2017-07-17 06:19] LABS: Mean Cell Volume 87.6 fl (78-100); Mean Corpuscular Hemoglobin 25.4 pg (26-32); Mean Platelet Volume 12.1 fl (6-9.5); Platelet Count 131 K/mm3 (150-450); Red Blood Count 3.38 M/mm3 (4.1-5.6); Red Cell Distribution Width 15.1 % (11.5-14.0); White Blood Count 7.2 K/mm3 (4.0-10.5)
[2017-07-17 06:29] LABS: BLOOD UREA NITROGEN 17 mg/dL (9-20); CHLORIDE 105 mEq/L (98-107); Carbon Dioxide 30.4 mEq/L (21-32); Glucose 226 MG/DL (70-110); Potassium 3.8 mEq/L (3.5-5.1); SODIUM 140 mEq/L (136-145)
[2017-07-17] MEDS: NovoLOG Insulin SQ PRN ×4 (07:29→22:14)
[2017-07-17] MEDS: Zosyn INJ 4.5 GM in D5w 100ML Mini Bag 100 ML 100 ML IV SCH ×3 (08:18→23:43)
[2017-07-17] MEDS: ENOXAPARIN SODIUM SQ SCH (08:19)
[2017-07-17] MEDS: PROTONIX 40 MG IV IV SCH (08:19)
[2017-07-17] MEDS: NEURONTIN 300 MG PO SCH ×3 (08:20→22:14)
[2017-07-17] MEDS: Singulair 10 MG PO SCH (08:21)
[2017-07-17] MEDS: Diflucan 100 MG PO SCH (08:21)
[2017-07-17] MEDS ORDERED: Tums EX 750 MG PO PRN (10:31)
[2017-07-17] MEDS: Lantus Insulin SQ SCH (11:45)
--- NOTE | 2017-07-17 11:54 | PCM.NOTE ---
Date and Time: 07/17/17 1148 Subjective Assessment: Patient reports that he usually takes Tresiba 36 units bid and humalog 10 unit with meals and also victoza 1.8 mg daily for his diabetes. He reports he occasionally has low blood glucoses at home. He reports he has had some epigastric pain x 2 days when he swallows. He is on an IV PPI. He reports he wants to see Dr. Bender for his foot before making any decision about amputation. - Review of Systems Constitutional: No Symptoms Eyes: No Symptoms Ears, Nose, & Throat: No Symptoms Respiratory: No Symptoms Cardiac: No Symptoms Abdominal/Gastrointestinal: Dysphagia, Other, No Nausea, No Vomiting, No Constipation Genitourinary Symptoms: Other (Patient would like ot have the de [place] rosa taken out. He doesn't usually have any problems urinating.) Additional Findings: He reports no feeling in his right foot. Objective Exam General Appearance: no apparent distress, alert Neurologic Exam: alert, cooperative, normal mood/affect Skin Exam: normal color, warm, dry, other (right foot with old mid foot amputation with 3 open sores on this with no active drainage at this time. Swollen and warm to touch.) Respiratory Exam: normal breath sounds, lungs clear, No crackles/rales, No rhonchi, No wheezing Cardiovascular Exam: regular rate/rhythm, normal heart sounds, No murmur, No friction rub, No gallop Gastrointestinal/Abdomen Exam: soft, normal bowel sounds, No tenderness, No distention, No mass OBJECTIVE DATA Vital Signs: Vital Signs - 24 hr Temp Pulse Resp BP Pulse Ox 07/17/17 07:23 98.5 F 74 18 135/76 96 07/17/17 04:00 97.6 F 72 18 125/79 97 07/17/17 00:00 98.5 F 60 18 121/82 96 07/16/17 20:00 98.1 F 64 18 128/71 96 07/16/17 19:01 93 L 07/16/17 16:00 98.5 F 71 17 124/74 95 Pain Assessment - Last Documented Pain Intensity 4 Pain Scale Used [facility] Intake and Output: Intake & Output 07/15/17 07/16/17 07/17/17 07/18/17 06:59 06:59 06:59 06:59 Intake Total 1783 7659 2291 480 Output Total 1800 1500 2550 Balance - 6159 -708 480 Weight 95.073 kg Lab Results: Accuchecks Date 07/17/17 Date 07/16/17 Time 07:30 Time 21:00 Accucheck Value: 211 Accucheck Value: 265 Accucheck Value: 254 Lab Results-Last 24 Hours 07/17/17 07/17/17 07/17/17 Range/Units 05:35 05:35 05:35 WBC 7.2 (4.0-10.5) K/mm3 RBC 3.38 L (4.1-5.6) M/mm3 Hgb 8.6 L (12.5-18.0) gm/dl Hct 29.6 L (42-50) % MCV 87.6 (78-100) fl MCH 25.4 L (26-32) pg MCHC 29.1 L (32-36) g/dl RDW 15.1 H (11.5-14.0) % Plt Count 131 L (150-450) K/mm3 MPV 12.1 H (6-9.5) fl Sodium 140 (136-145) mEq/L Potassium 3.8 (3.5-5.1) mEq/L Chloride 105 (98-107) mEq/L Carbon Dioxide 30.4 (21-32) mEq/L Anion Gap 8.0 (5-15) MEQ/L BUN 17 (9-20) mg/dL Creatinine 1.29 (0.55-1.30) mg/dl Estimated GFR > 60 ML/MIN Glucose 226 H (70-110) MG/DL Calcium 7.3 L (8.5-10.1) mg/dL Vancomycin Trough 15.6 (10-20) UG/ML Radiology Exams: Radiology Procedures Category Date Time Status FOOT (MINIMUM 3 VIEWS) Routine Exams 07/17/17 Taken Assessment/Plan (1) Diabetes mellitus type 2, uncontrolled Current Visit: No Status: Chronic Qualifiers: Diabetes mellitus complication status: with skin complications Diabetes mellitus complication detail: with foot ulcer Diabetes mellitus predatory animal exterminator insulin use: with predatory animal exterminator use Qualified Code(s): E11.621 - Type 2 diabetes mellitus with foot ulcer; E11.65 - Type 2 diabetes mellitus with hyperglycemia; Z79.4 - terminal computer operator (current) use of insulin; Z79.4 - terminal computer operator (current) use of insulin; Z79.4 - terminal computer operator (current) use of insulin; E11.65 - Type 2 diabetes mellitus with hyperglycemia; E11.65 - Type 2 diabetes mellitus with hyperglycemia; E11.65 - Type 2 diabetes mellitus with hyperglycemia; L97.509 - Non-pressure chronic ulcer of other part of unspecified foot with unspecified severity; L97.509 - Non-pressure chronic ulcer of other part of unspecified foot with unspecified severity; L97.509 - Non-pressure chronic ulcer of other part of unspecified foot with unspecified severity; L97.509 - Non-pressure chronic ulcer of other part of unspecified foot with unspecified severity; Z79.4 - penitentiary (current) use of insulin Assessment & Plan: Start lantus 20 units today. Continue sliding scale and accu checks QAC and QHS. Hgb A1C was 8.8 on 07/16/17. (2) Diabetic foot infection Current Visit: Yes Status: Acute Assessment & Plan: X-ray ordered and inconclusive concerning possible osteomyelitis. Will order MRI of right foot for Wednesday. If he has osteomyelitis, he will need predatory animal exterminator antibiotics. Contnue vancomycin and zosyn. Wound culture is growing a gram neg organism. Blood cultures no grown to date. Patient states he wants to follow up with Dr. Bender as an outpatient. Code(s): E11.69 - TYPE 2 DIABETES MELLITUS WITH OTHER SPECIFIED COMPLICATION; L08.9 - LOCAL INFECTION OF THE SKIN AND SUBCUTANEOUS TISSUE, UNSP (3) Dysphagia Current Visit: Yes Status: Acute Assessment & Plan: Continue with proton pump inhibitor. Add tums as needed. Code(s): R13.10 - DYSPHAGIA, UNSPECIFIED
[2017-07-17] MEDS: CEPACOL SORE THROAT LOZENGE PO PRN (12:15)
--- NOTE | 2017-07-17 21:21 | XRAY ---
Indication: Right foot infection. Comparison: May 21, 2016. 3 views of the right foot again demonstrates mid to distal foot amputation with now moth-eaten appearance of the remnant metatarsals/tarsal bones concerning for osteomyelitis. Also worsening diffuse soft tissue swelling favoring cellulitis. Stable heel spurs. Comment: Preliminary interpretation was made by [facility]. No critical discrepancy.
[2017-07-17] MEDS: ZOCOR 20MG PO SCH (22:14)
[2017-07-18] MEDS: VANCOCIN 1 GM VIAL*** 1 GM in Sodium Chloride 0.9% 250 ML 250 ML IV SCH ×2 (06:17→16:16)
[2017-07-18] MEDS: Zosyn INJ 4.5 GM in D5w 100ML Mini Bag 100 ML 100 ML IV SCH (08:15)
[2017-07-18] MEDS: Lantus Insulin SQ SCH (08:15)
[2017-07-18] MEDS: NovoLOG Insulin SQ PRN ×4 (08:16→22:32)
[2017-07-18] MEDS: ENOXAPARIN SODIUM SQ SCH (08:17)
[2017-07-18] MEDS: PROTONIX 40 MG IV IV SCH (08:17)
[2017-07-18] MEDS: Diflucan 100 MG PO SCH (08:17)
[2017-07-18] MEDS: Singulair 10 MG PO SCH (08:17)
[2017-07-18] MEDS: NEURONTIN 300 MG PO SCH ×3 (08:17→21:43)
--- NOTE | 2017-07-18 08:49 | PCM.NOTE ---
Date and Time: 07/18/17 0843 Subjective Assessment: He reports he is feeling well today. He was glad to get his catheter out last night but he has not urinated since it was taken out. He reports PT dressed his foot last night. - Review of Systems Constitutional: No Symptoms Eyes: No Symptoms Ears, Nose, & Throat: No Symptoms Respiratory: No Symptoms Cardiac: No Symptoms Abdominal/Gastrointestinal: No Symptoms Genitourinary Symptoms: No Symptoms Musculoskeletal: No Symptoms Skin: No Symptoms Objective Exam General Appearance: no apparent distress, alert, other (lying in bed, eating breakfast) Neurologic Exam: alert, cooperative, normal mood/affect Skin Exam: normal color, warm, dry, other (right foot dressed) Respiratory Exam: normal breath sounds, No lungs clear, No crackles/rales, No rhonchi, No wheezing Cardiovascular Exam: regular rate/rhythm, normal heart sounds, No murmur, No friction rub, No gallop Gastrointestinal/Abdomen Exam: soft, normal bowel sounds, No tenderness, No distention, No mass Extremity Exam: normal inspection, other (no c/c/e) OBJECTIVE DATA Vital Signs: Vital Signs - 24 hr Temp Pulse Resp BP Pulse Ox 07/18/17 07:04 98.3 F 74 18 153/70 94 L 07/18/17 03:48 98.8 F 85 18 146/77 99 07/17/17 23:50 99 F 82 16 129/60 98 07/17/17 19:57 98 F 70 18 130/69 97 07/17/17 18:44 95 07/17/17 16:00 98.0 F 78 18 138/65 98 07/17/17 12:00 98.1 F 74 18 123/65 94 L Pain Assessment - Last Documented Pain Intensity 4 Pain Scale Used 0-10 Pain Scale Intake and Output: Intake & Output 07/16/17 07/17/17 07/18/17 07/19/17 06:59 06:59 06:59 06:59 Intake Total 7659 2291 7120 Output Total 1500 2550 7100 Balance 6159 -259 20 Lab Results: Accuchecks Date 07/17/17 Date 07/17/17 Time 21:00 Time 12:01 Accucheck Value: 290 Accucheck Value: 282 Lab Results-Last 24 Hours 07/18/17 Range/Units 05:30 Vancomycin Trough 16.2 (10-20) UG/ML Radiology Exams: Radiology Procedures Category Date Time Status FOOT (MINIMUM 3 VIEWS) Routine Exams 07/17/17 Completed MRI LOWER EXT W/O CONTRAST [MRI] Routine Exams 07/19/17 08:00 Ordered Assessment/Plan (1) Diabetes mellitus type 2, uncontrolled Current Visit: No Status: Chronic Qualifiers: Diabetes mellitus complication status: with skin complications Diabetes mellitus complication detail: with foot ulcer Diabetes mellitus long term care pharmacist insulin use: with fdc use Qualified Code(s): E11.621 - Type 2 diabetes mellitus with foot ulcer; E11.65 - Type 2 diabetes mellitus with hyperglycemia; Z79.4 - prison (current) use of insulin; Z79.4 - lobsterman (current) use of insulin; Z79.4 - prison (current) use of insulin; E11.65 - Type 2 diabetes mellitus with hyperglycemia; E11.65 - Type 2 diabetes mellitus with hyperglycemia; E11.65 - Type 2 diabetes mellitus with hyperglycemia; L97.509 - Non-pressure chronic ulcer of other part of unspecified foot with unspecified severity; L97.509 - Non-pressure chronic ulcer of other part of unspecified foot with unspecified severity; L97.509 - Non-pressure chronic ulcer of other part of unspecified foot with unspecified severity; L97.509 - Non-pressure chronic ulcer of other part of unspecified foot with unspecified severity; Z79.4 - lobsterman (current) use of insulin Assessment & Plan: Lantus was added yesterday. Will add short acting insulin with his meals. (2) Diabetic foot infection Current Visit: Yes Status: Acute Assessment & Plan: Wound culture is back. Consulting with pharmacist about if any needed antibiotic changes. I am not sure why he is on fluconazole. Dr. Jackson who started this will be back to see him tomorrow. X-ray concerning for osteo. Check MRI of right foot tomorrow for definitive diagnosis . Code(s): E11.69 - TYPE 2 DIABETES MELLITUS WITH OTHER SPECIFIED COMPLICATION; L08.9 - LOCAL INFECTION OF THE SKIN AND SUBCUTANEOUS TISSUE, UNSP (3) Dysphagia Current Visit: Yes Status: Acute Assessment & Plan: Improved today. Code(s): R13.10 - DYSPHAGIA, UNSPECIFIED
[2017-07-18] MEDS ORDERED: PHARMACY DOSING REQUEST MC ONE ×2 (09:24)
[2017-07-18] MEDS: Levofloxacin 500 MG Tablet PO SCH (11:09)
[2017-07-18] MEDS: Levofloxacin 250MG Tablet PO SCH (11:10)
[2017-07-18] MEDS: Maxipime 2 GM** 2 G in Dextrose 5%/Water IV Soln. 100ML PLUS BAG 100 ML IV SCH ×2 (11:10→21:44)
[2017-07-18] MEDS: NovoLOG Insulin SQ SCH ×2 (11:40→16:36)
[2017-07-18] MEDS: ZOCOR 20MG PO SCH (21:43)
[2017-07-19] MEDS: VANCOCIN 1 GM VIAL*** 1 GM in Sodium Chloride 0.9% 250 ML 250 ML IV SCH ×2 (06:51→17:25)
[2017-07-19] MEDS: Lantus Insulin SQ SCH (08:03)
[2017-07-19] MEDS: NovoLOG Insulin SQ SCH ×3 (08:04→16:34)
[2017-07-19] MEDS: NovoLOG Insulin SQ PRN ×4 (08:04→21:34)
[2017-07-19] MEDS: Levofloxacin 500 MG Tablet PO SCH (09:28)
[2017-07-19] MEDS: NEURONTIN 300 MG PO SCH ×3 (09:28→21:15)
[2017-07-19] MEDS: Singulair 10 MG PO SCH (09:29)
[2017-07-19] MEDS: Levofloxacin 250MG Tablet PO SCH (09:29)
[2017-07-19] MEDS: ENOXAPARIN SODIUM SQ SCH (09:29)
[2017-07-19] MEDS: PROTONIX 40 MG IV IV SCH (09:30)
[2017-07-19] MEDS: Nystatin SUSPENSION 60 ML PO SCH ×4 (09:30→21:22)
[2017-07-19] MEDS: Klonopin 0.5 MG PO PRN ×2 (09:30→21:33)
[2017-07-19] MEDS: CEPACOL SORE THROAT LOZENGE PO PRN (09:31)
[2017-07-19] MEDS: Maxipime 2 GM** 2 G in Dextrose 5%/Water IV Soln. 100ML PLUS BAG 100 ML IV SCH ×2 (09:51→21:15)
--- NOTE | 2017-07-19 12:16 | XRAY ---
Indication: Diabetic ulcers. Possible osteomyelitis. Sagittal, coronal, and axial MRI right foot performed using pre-and post T1, T2, and STIR sequences. 15 cc Magnevist contrast used. Comparison: May 03, 2017. Again there has been previous metatarsophalangeal amputation. There is marked worsening diffuse superficial/deep soft tissue swelling/edema and enhancement consistent with cellulitis. There are now several pockets of rim-enhancing fluid anteriorly worrisome for abscesses. Largest anterior medial to the talus measuring 1.7 x 2.5 x 1.6 cm. There is also marked worsening bone edema signal and enhancement involving all the remnant metatarsals, cuneiforms, navicular, and cuboid bones favoring osteomyelitis. Lesser degree of patchy osteomyelitis seen of the mid talus and midanterior calcaneus. Ankle mortise intact. Stable posterior/plantar heel spurs. Visualized Achilles tendons intact without abnormal signal/enhancement. Visualized distal tibia/fibula unremarkable. Impression: Again distal metatarsophalangeal amputation with marked worsening diffuse right foot cellulitis with now pockets of abscesses. There is also marked worsening diffuse osteomyelitis. Stable heel spurs.
--- NOTE | 2017-07-19 14:30 | PCM.NOTE ---
Date and Time: 07/19/171423 Subjective Assessment: He is shruti po. Feeling well. States artificial sweeteners make him sick. Objective Exam General Appearance: no apparent distress, alert Neurologic Exam: oriented x 3, cooperative Skin Exam: normal color, warm, dry Respiratory Exam: normal breath sounds, lungs clear, No crackles/rales, No rhonchi, No wheezing Cardiovascular Exam: regular rate/rhythm, normal heart sounds, No murmur Extremity Exam: other (RLE s/p remote amputations, dressed currently) OBJECTIVE DATA Vital Signs: Vital Signs - 24 hr Temp Pulse Resp BP Pulse Ox 07/19/17 11:47 97.9 F 72 18 135/74 96 07/19/17 07:04 98.4 F 81 18 143/70 94 L 07/19/17 03:59 98.2 F 79 18 142/71 97 07/18/17 23:46 98.5 F 87 20 157/86 94 L 07/18/17 19:29 98.2 F 83 20 168/84 93 L 07/18/17 16:00 97.2 F 80 18 142/77 99 Pain Assessment - Last Documented Pain Intensity 0 Pain Scale Used 0-10 Pain Scale Intake and Output: Intake & Output 07/17/17 07/18/17 07/19/17 07/20/17 11:59 11:59 11:59 11:59 Intake Total 1680 7460 5689 Output Total 2550 7100 Balance -111 800 3292 Weight 95.073 kg Lab Results: Accuchecks Date 07/19/17 Date 07/19/17 Date 07/18/17 Date 07/18/17 Time 11:30 Time 07:30 Time 21:00 Time 16:30 Accucheck Value: 248 Accucheck Value: 276 Accucheck Value: 223 Accucheck Value: 273 Radiology Exams: Radiology Procedures Category Date Time Status MRI LOWER EXT W & W/O [MRI] Routine Exams 07/19/17 08:34 Completed Assessment/Plan (1) Diabetic infection of right foot Current Visit: No Status: Resolved Assessment & Plan: With likely osteomyelitis; MRI ordered for today. He is on cefepime and vancomycin due to positive culture. He would like to defer decision on amputation until he consults with Dr. Bender. Code(s): E11.69 - TYPE 2 DIABETES MELLITUS WITH OTHER SPECIFIED COMPLICATION; L08.9 - LOCAL INFECTION OF THE SKIN AND SUBCUTANEOUS TISSUE, UNSP (2) Hypernatremia Current Visit: Yes Status: Resolved Assessment & Plan: will recheck again tomorrow. Code(s): E87.0 - HYPEROSMOLALITY AND HYPERNATREMIA (3) Diabetes mellitus type 2, uncontrolled Current Visit: No Status: Chronic Qualifiers: Diabetes mellitus complication status: with skin complications Diabetes mellitus complication detail: with foot ulcer Diabetes mellitus watermelon inspector insulin use: with [facility] use Qualified Code(s): E11.621 - Type 2 diabetes mellitus with foot ulcer; E11.65 - Type 2 diabetes mellitus with hyperglycemia; Z79.4 - local company intermodal truck driver (current) use of insulin; Z79.4 - local company intermodal truck driver (current) use of insulin; Z79.4 - local company intermodal truck driver (current) use of insulin; E11.65 - Type 2 diabetes mellitus with hyperglycemia; E11.65 - Type 2 diabetes mellitus with hyperglycemia; E11.65 - Type 2 diabetes mellitus with hyperglycemia; L97.509 - Non-pressure chronic ulcer of other part of unspecified foot with unspecified severity; L97.509 - Non-pressure chronic ulcer of other part of unspecified foot with unspecified severity; L97.509 - Non-pressure chronic ulcer of other part of unspecified foot with unspecified severity; L97.509 - Non-pressure chronic ulcer of other part of unspecified foot with unspecified severity; Z79.4 - [facility] (current) use of insulin Assessment & Plan: He wanted to have a regular soda, and since this is how he eats at home, I will go ahead and feed him a regular diet then adjust his insulin accordingly. (4) Diarrhea Current Visit: Yes Status: Acute Qualifiers: Diarrhea type: unspecified type Qualified Code(s): R19.7 - Diarrhea, unspecified Assessment & Plan: new since admission. Will check for c.diff. Code(s): R19.7 - DIARRHEA, UNSPECIFIED (5) Sepsis Current Visit: Yes Status: Resolved Qualifiers: Sepsis type: sepsis due to unspecified organism Qualified Code(s): A41.9 - Sepsis, unspecified organism (6) Hyperosmolar non-ketotic state in patient with type 2 diabetes mellitus Current Visit: Yes Status: Resolved Code(s): E11.01 - TYPE 2 DIABETES MELLITUS WITH HYPEROSMOLARITY WITH COMA
[2017-07-19] MEDS: ZOCOR 20MG PO SCH (21:15)
[2017-07-20] MEDS: VANCOCIN 1 GM VIAL*** 1 GM in Sodium Chloride 0.9% 250 ML 250 ML IV SCH ×2 (05:24→18:19)
[2017-07-20] MEDS ORDERED: Lactated Ringers 1,000 ML IV SCH (06:30)
--- NOTE | 2017-07-20 08:56 | PCM.NOTE ---
Date and Time: 07/20/17 0851 Subjective Assessment: Pt had EGD this morning, revealed some erythema distal esophagus. Pt is hungry and eating currently. Denies pain in the foot. - Review of Systems Constitutional: No Fever Skin: Cellulitis Objective Exam General Appearance: no apparent distress, alert Neurologic Exam: oriented x 3, cooperative Skin Exam: warm, dry Respiratory Exam: normal breath sounds, lungs clear, No crackles/rales, No rhonchi, No wheezing Cardiovascular Exam: regular rate/rhythm, normal heart sounds, No murmur Extremity Exam: other (distal RLE wrapped. There is 1+ edema, pretibial, on the R. anterior L lower leg with an approx 3-4 mm erosion, no erythema/exudate.) OBJECTIVE DATA Vital Signs: Vital Signs - 24 hr Temp Pulse Resp BP Pulse Ox 07/20/17 06:32 97.3 F 81 18 120/60 92 L 07/20/17 05:50 97.3 F 81 18 120/60 92 L 07/20/17 03:56 98.0 F 90 18 137/63 93 L 07/20/17 00:00 98.0 F 90 18 137/63 93 L 07/19/17 19:53 98.2 F 91 H 20 134/73 96 07/19/17 15:57 98.4 F 82 18 160/74 94 L 07/19/17 11:47 97.9 F 72 18 135/74 96 Pain Assessment - Last Documented Pain Intensity 0 Pain Scale Used [facility] Intake and Output: Intake & Output 07/17/17 07/18/17 07/19/17 07/20/17 11:59 11:59 11:59 11:59 Intake Total 1680 7460 5689 66425 Output Total 2550 7100 850 Balance -495 554 7538 40751 Weight 95.073 kg 95.073 kg Lab Results: Accuchecks Date 07/20/17 Date 07/19/17 Date 07/19/17 Time 16:30 Time 11:30 Accucheck Value: 324 Accucheck Value: 284 Accucheck Value: 248 Lab Results-Last 24 Hours 07/19/17 Range/Units 13:33 Stl C. diff Tox B Gene NEGATIVE (NEGATIVE) C.difficile [id number] PRESUMPTIVE NEGATIVE (NEGATIVE) Radiology Exams: Radiology Procedures Category Date Time Status MRI LOWER EXT W & W/O [MRI] Routine Exams 07/19/17 08:34 Completed Multi-Disciplinary Progress Notes: Multi-Disciplinary Progress Notes 07/20/17 08:07 Pharmacy Note by LINING SEWER,PHARM 07/20: Culture report reveals gram positive cocci (possible contaminant), but due to pt hx of MRSA, recommend keeping Vanc on board. Last trough checked 07/18 was 16.2. Another trough ordered today 07/20. Thank you! Shea, pharmacy account director Initialized on 07/20/17 08:07 - END OF NOTE Assessment/Plan (1) Osteomyelitis Current Visit: Yes Status: Acute Qualifiers: Osteomyelitis type: other acute Osteomyelitis location: foot Laterality: right Qualified Code(s): M86.171 - Other acute osteomyelitis, right ankle and foot Assessment & Plan: He is currently on vancomycin and cefepime per culture results. He does not want an amputation. I will discuss results with his commercial account executive, DR. Bender, today. Code(s): M86.9 - OSTEOMYELITIS, UNSPECIFIED (2) Diabetes mellitus type 2, uncontrolled Current Visit: No Status: Chronic Qualifiers: Diabetes mellitus complication status: with skin complications Diabetes mellitus complication detail: with foot ulcer Diabetes mellitus group home insulin use: with terminal clerk use Qualified Code(s): E11.621 - Type 2 diabetes mellitus with foot ulcer; E11.65 - Type 2 diabetes mellitus with hyperglycemia; Z79.4 - vermin exterminator (current) use of insulin; Z79.4 - retirement (current) use of insulin; Z79.4 - retirement (current) use of insulin; E11.65 - Type 2 diabetes mellitus with hyperglycemia; E11.65 - Type 2 diabetes mellitus with hyperglycemia; E11.65 - Type 2 diabetes mellitus with hyperglycemia; L97.509 - Non-pressure chronic ulcer of other part of unspecified foot with unspecified severity; L97.509 - Non-pressure chronic ulcer of other part of unspecified foot with unspecified severity; L97.509 - Non-pressure chronic ulcer of other part of unspecified foot with unspecified severity; L97.509 - Non-pressure chronic ulcer of other part of unspecified foot with unspecified severity; Z79.4 - vermin exterminator (current) use of insulin Assessment & Plan: Increase his lantus here from 20 units daily to 20 units BID (usually takes tresiba 36 units BID at home) (3) Diarrhea Current Visit: Yes Status: Acute Qualifiers: Diarrhea type: unspecified type Qualified Code(s): R19.7 - Diarrhea, unspecified Assessment & Plan: no complaint today. C. diff neg. Code(s): R19.7 - DIARRHEA, UNSPECIFIED
[2017-07-20] MEDS: Nystatin SUSPENSION 60 ML PO SCH ×4 (09:15→21:50)
[2017-07-20] MEDS: Singulair 10 MG PO SCH (09:15)
[2017-07-20] MEDS: NEURONTIN 300 MG PO SCH ×3 (09:15→21:41)
[2017-07-20] MEDS: Levofloxacin 250MG Tablet PO SCH (09:15)
[2017-07-20] MEDS: ENOXAPARIN SODIUM SQ SCH (09:15)
[2017-07-20] MEDS: Levofloxacin 500 MG Tablet PO SCH (09:15)
[2017-07-20] MEDS: NovoLOG Insulin SQ PRN ×4 (09:16→21:43)
[2017-07-20] MEDS: Lantus Insulin SQ SCH ×2 (09:16→21:42)
[2017-07-20] MEDS: NovoLOG Insulin SQ SCH ×3 (09:16→16:48)
[2017-07-20] MEDS ORDERED: DIPRIVAN 200 MG/20 ML IV ONE (09:36)
[2017-07-20] MEDS: Maxipime 2 GM** 2 G in Dextrose 5%/Water IV Soln. 100ML PLUS BAG 100 ML IV SCH ×2 (09:57→21:40)
[2017-07-20] MEDS: PROTONIX 40 MG IV IV SCH (09:58)
--- NOTE | 2017-07-20 12:56 | OP ---
SURGERY DATE: 07/20/17 SURGERY TIME: 755 PREOPERATIVE DIAGNOSIS: 1. GASTROESOPHAGEAL REFLUX DISEASE. POSTOPERATIVE DIAGNOSIS: 1. GASTRITIS. PROCEDURE: 1. Esophagogastroduodenoscopy with biopsy. SURGEON: Dr. Wiley. ANESTHESIA: MAC. Medications given by the Anesthesia Department. BRIEF HISTORY: The patient is a 46 y/o WM patient currently admitted to the hospital. He is a long-term diabetic type I. He now has problems with osteomyelitis and is being treated for this with IV antibiotics. The patient had reported over the past week he had been having problems with severe epigastric pain that has been radiating up to his neck. He had never had problems like this previous to his hospitalization. The patient was felt to need to have endoscopic evaluation. He was appraised of the risks of the procedure including the risk of perforation, phlebitis, untoward reaction to medication, bleeding, and missed lesions. The patient verbalized his understanding and desired to have the procedure performed. DESCRIPTION OF PROCEDURE: The patient was given the medications by the Anesthesia Department. He had continuous pulse oximetry, ECG monitoring, intermittent BP monitoring, and end tidal CO2 monitoring during the examination. He was placed in the left lateral decubitus position. A bite block was placed and the flexible Olympus gastroscope was used to intubate the oropharynx. A view of the larynx was obtained and was normal. The scope was easily introduced in the esophagus which appeared to be essentially normal throughout its length. The stomach was entered where normal gastric rugal folds were seen and these distended nicely with the insufflation of air. There was noted to be some gastric food stuffs still present in the stomach. The scope was passed along the greater curvature of the stomach to the antrum. There was noted to be some prepyloric erythema, but no erosions or ulcerations were noted. The pylorus was intubated. The duodenum was inspected and found to be normal. The scope was withdrawn towards the stomach. Again, a retroflex view was obtained of the lesser curvature, fundus, and cardia regions of the stomach. These appeared to be essentially normal. The scope was then redirected towards the gastric antrum. Biopsies were obtained from the area of the erythema to rule out the presence of Helicobacter pylori type organisms and to confirm the presence of the gastritis. The scope was then removed from the patient who tolerated the procedure well and was sent back to the hospital [facility] in good condition.
[2017-07-20] MEDS ORDERED: TROUGH DRUG LEVELS IJ ONE (17:30)
[2017-07-20] MEDS: ZOCOR 20MG PO SCH (21:41)
[2017-07-21] MEDS: VANCOCIN 1 GM VIAL*** 1 GM in Sodium Chloride 0.9% 250 ML 250 ML IV SCH ×2 (05:46→17:32)
[2017-07-21] MEDS: NovoLOG Insulin SQ PRN ×3 (08:00→23:28)
[2017-07-21] MEDS: NovoLOG Insulin SQ SCH ×3 (08:00→16:27)
[2017-07-21 09:01] LABS: Mean Cell Volume 87.1 fl (78-100); Mean Corpuscular Hemoglobin 25.4 pg (26-32); Mean Platelet Volume 10.7 fl (6-9.5); Platelet Count 202 K/mm3 (150-450); Red Blood Count 3.34 M/mm3 (4.1-5.6); White Blood Count 6.4 K/mm3 (4.0-10.5)
[2017-07-21] MEDS: ENOXAPARIN SODIUM SQ SCH (09:02)
[2017-07-21] MEDS: PROTONIX 40 MG IV IV SCH (09:03)
[2017-07-21] MEDS: Singulair 10 MG PO SCH (09:03)
[2017-07-21] MEDS: Levofloxacin 500 MG Tablet PO SCH (09:03)
[2017-07-21] MEDS: Levofloxacin 250MG Tablet PO SCH (09:03)
[2017-07-21] MEDS: NEURONTIN 300 MG PO SCH ×3 (09:03→23:27)
[2017-07-21] MEDS: Nystatin SUSPENSION 60 ML PO SCH ×4 (09:04→23:27)
[2017-07-21] MEDS: Maxipime 2 GM** 2 G in Dextrose 5%/Water IV Soln. 100ML PLUS BAG 100 ML IV SCH ×2 (09:05→23:50)
--- NOTE | 2017-07-21 09:07 | PCM.NOTE ---
Date and Time: 07/21/17 0904 Subjective Assessment: Pt without complaints, no leg pain, shruti po well. small amounts of diarrhea when he urinates. - Review of Systems Constitutional: No Fever Abdominal/Gastrointestinal: Diarrhea Objective Exam General Appearance: no apparent distress, alert Neurologic Exam: oriented x 3, cooperative Skin Exam: normal color, warm, dry Eye Exam: eyes nml inspection Respiratory Exam: normal breath sounds, lungs clear, No crackles/rales, No rhonchi, No wheezing Cardiovascular Exam: regular rate/rhythm, normal heart sounds, No murmur Gastrointestinal/Abdomen Exam: soft, normal bowel sounds, No tenderness Extremity Exam: other (RLE s/p remote amputation; wrapped by PT. no erythema visible proximal to bandage.) OBJECTIVE DATA Vital Signs: Vital Signs - 24 hr Temp Pulse Resp BP Pulse Ox 07/21/17 07:24 98.4 F 95 H 18 142/66 95 07/21/17 03:27 98.6 F 99 H 16 136/60 94 L 07/21/17 00:33 98.5 F 103 H 17 117/62 94 L 07/20/17 21:00 98.2 F 100 H 19 147/67 92 L 07/20/17 16:22 98.4 F 95 H 18 156/70 100 07/20/17 11:51 98.3 F 91 H 18 167/78 93 L Pain Assessment - Last Documented Pain Intensity 0 Pain Scale Used 0-10 Pain Scale Intake and Output: Intake & Output 07/18/17 07/19/17 07/20/17 07/21/17 11:59 11:59 11:59 11:59 Intake Total 7460 5689 89329 3047 Output Total 7100 850 750 Balance 360 5689 09953 2297 Weight 95.073 kg 95.073 kg Lab Results: Accuchecks Date 07/20/17 Date 07/20/17 Date 07/20/17 Time 22:00 Time 16:30 Time 11:30 Accucheck Value: 288 Accucheck Value: 280 Accucheck Value: 300 Lab Results-Last 24 Hours 07/20/17 07/21/17 Range/Units 18:10 08:46 WBC 6.4 (4.0-10.5) K/mm3 RBC 3.34 L (4.1-5.6) M/mm3 Hgb 8.5 L (12.5-18.0) gm/dl Hct 29.1 L (42-50) % MCV 87.1 (78-100) fl MCH 25.4 L (26-32) pg MCHC 29.2 L (32-36) g/dl RDW 15.0 H (11.5-14.0) % Plt Count 202 (150-450) K/mm3 MPV 10.7 H (6-9.5) fl Vancomycin Trough 15.1 (10-20) UG/ML Radiology Exams: Radiology Procedures Category Date Time Status MRI LOWER EXT W & W/O [MRI] Routine Exams 07/19/17 08:34 Completed Assessment/Plan (1) Osteomyelitis Current Visit: Yes Status: Acute Qualifiers: Osteomyelitis type: other acute Osteomyelitis location: foot Laterality: right Qualified Code(s): M86.171 - Other acute osteomyelitis, right ankle and foot Assessment & Plan: Will discuss with dr. Bender today, pt wants second opinion on amputation that was recommended by surgery. Code(s): M86.9 - OSTEOMYELITIS, UNSPECIFIED (2) Diabetes mellitus type 2, uncontrolled Current Visit: No Status: Chronic Qualifiers: Diabetes mellitus complication status: with skin complications Diabetes mellitus complication detail: with foot ulcer Diabetes mellitus photograph tinter insulin use: with photograph tinter use Qualified Code(s): E11.621 - Type 2 diabetes mellitus with foot ulcer; E11.65 - Type 2 diabetes mellitus with hyperglycemia; Z79.4 - division head (current) use of insulin; Z79.4 - division head (current) use of insulin; Z79.4 - division head (current) use of insulin; E11.65 - Type 2 diabetes mellitus with hyperglycemia; E11.65 - Type 2 diabetes mellitus with hyperglycemia; E11.65 - Type 2 diabetes mellitus with hyperglycemia; L97.509 - Non-pressure chronic ulcer of other part of unspecified foot with unspecified severity; L97.509 - Non-pressure chronic ulcer of other part of unspecified foot with unspecified severity; L97.509 - Non-pressure chronic ulcer of other part of unspecified foot with unspecified severity; L97.509 - Non-pressure chronic ulcer of other part of unspecified foot with unspecified severity; Z79.4 - jail (current) use of insulin Assessment & Plan: 200s up to 300 BS - will increase the lantus. (3) Diarrhea Current Visit: Yes Status: Acute Qualifiers: Diarrhea type: unspecified type Qualified Code(s): R19.7 - Diarrhea, unspecified Assessment & Plan: C. diff neg. Code(s): R19.7 - DIARRHEA, UNSPECIFIED
[2017-07-21 09:27] LABS: ALBUMIN 1.6 g/dL (3.4-5.0); ALKALINE PHOSPHATASE 81 U/L (46-116); ANION GAP 7.4 MEQ/L (5-15); BLOOD UREA NITROGEN 10 mg/dL (9-20); CHLORIDE 106 mEq/L (98-107); Carbon Dioxide 33.3 mEq/L (21-32); Glucose 285 MG/DL (70-110); Potassium 3.3 mEq/L (3.5-5.1); SGOT/AST 15 U/L (15-37); SGPT/ALT 9 U/L (12-78); SODIUM 143 mEq/L (136-145); Total Protein 6.1 gm/dL (6.4-8.2)
[2017-07-21 09:33] LABS: Nucleated Red Blood Cell 1 %; Total Cells Counted 100
[2017-07-21 09:34] LABS: ANISOCYTOSIS 1+; Basophilic Stippling 1+; Hypochromia 1+; Platelet Estimate NORMAL (NORMAL); Poikilocytosis 1+; Polychromasia 2+
[2017-07-21] MEDS: Lantus Insulin SQ SCH ×2 (10:23→23:27)
[2017-07-21] MEDS: ZOCOR 20MG PO SCH (23:27)
[2017-07-22] MEDS: VANCOCIN 1 GM VIAL*** 1 GM in Sodium Chloride 0.9% 250 ML 250 ML IV SCH (05:59)
[2017-07-22] MEDS: TYLENOL 325 MG PO PRN (06:07)
[2017-07-22 07:00] VITALS: BP 137/80; PULSE 86; O2SAT 96
[2017-07-22] MEDS: NovoLOG Insulin SQ SCH (07:45)
[2017-07-22] MEDS: NovoLOG Insulin SQ PRN (07:46)
[2017-07-22] MEDS: PROTONIX 40 MG IV IV SCH (09:00)
[2017-07-22] MEDS: Levofloxacin 500 MG Tablet PO SCH (09:01)
[2017-07-22] MEDS: NEURONTIN 300 MG PO SCH (09:01)
[2017-07-22] MEDS: Levofloxacin 250MG Tablet PO SCH (09:01)
[2017-07-22] MEDS: Nystatin SUSPENSION 60 ML PO SCH (09:01)
[2017-07-22] MEDS: Singulair 10 MG PO SCH (09:01)
[2017-07-22] MEDS: ENOXAPARIN SODIUM SQ SCH (09:02)
[2017-07-22] MEDS: Maxipime 2 GM** 2 G in Dextrose 5%/Water IV Soln. 100ML PLUS BAG 100 ML IV SCH (09:08)
[2017-07-22] MEDS ORDERED: Lantus Insulin SQ SCH (10:00)
--- NOTE | 2017-07-22 11:03 | PCM.DS ---
Discharge Summary Date of Admission: 07/22/17 10:30 Admitting Physician: DEYVI ARDON Primary Care Provider: DEYVI ARDON Allergies Allergies No Known Drug Allergies Allergy (Verified 07/22/17 11:48) Hospital Summary - Hospital Course Hospital Course: Pt admitted for hyperglycemic hyperosmolar state with severe sepsis. Improved with fluids, insulin, and IV antibiotics. He was found to have worsened infection of R foot with osteomyelitis. the surgeons recommended BKA but the pt is refusing until he gets a second opinion from his physician ophthalmologist. He is feeling much better, not on any pain, BS 200s. On IV vancomycin an dcefepime s/ p cultures. He is discharging to swing bed today for further IV therapy. - Vitals & Intake/Output Vital Signs: Vital Signs Temperature 98 F 07/22/17 10:53 Pulse Rate 80 07/22/17 10:53 Respiratory Rate 20 07/22/17 10:53 Blood Pressure 132/78 07/22/17 10:53 O2 Sat by Pulse Oximetry 97 07/22/17 10:53 - Lab Result Diagrams: 07/21/17 08:46 07/21/17 08:46 Discharge Exam General Appearance: no apparent distress, alert Neurologic Exam: oriented x 3, cooperative Skin Exam: normal color, warm, dry Respiratory Exam: normal breath sounds, lungs clear, No crackles/rales, No rhonchi, No wheezing Cardiovascular Exam: regular rate/rhythm, normal heart sounds, No murmur Extremity Exam: other (RLE wrapped, generalized nonpitting edema) Final Diagnosis/Problem List - Final Discharge Diagnosis/Problem (1) Osteomyelitis Status: Acute Assessment & Plan: Remain in swing bed for IV therapy. I will consult judy Yadav and see what his recommended course of action is. (2) Diabetes mellitus type 2, uncontrolled Status: Chronic Assessment & Plan: Slowly increasing lantus here to find blood sugar control. He is on regular diet as he follows no sort of diabetic diet at home. - Discharge Disposition: Swing Bed @ [facility] Condition: Critical Prescriptions: No Action Clonazepam 0.5 mg [Klonopin 0.5 MG] 1 mg PO TID PRN PRN Reason: Anxiety Pravastatin Sodium 20 mg PO HS Montelukast Sodium [Singulair] 10 mg PO DAILY Gabapentin 300 mg PO TID Fenofibrate Nanocrystallized [Fenofibrate] 1 tab PO DAILY Liraglutide [Victoza 2-Jethro] 1.8 units SQ DAILY Insulin Degludec [Tresiba Flextouch U-100] 80 units SQ DAILY Follow up with: DEYVI ARDON [Primary Care Provider] - ROBERT YADAV [PODIATRY STAFF] - 07/28/17 9:30 am Forms: Patient Portal Information
== END 2017-07-22 10:30 | disposition swing bed (61) | DRG 999 ==
LOC: ED 23:16 → ICU 07-15 03:19 → MED SURG 07-16 10:35
PROVIDERS: ADMIT Family Medicine; ATTEND Family Medicine
PROC: 0DB68ZX Excision of Stomach, Via Natural or Artificial Opening Endoscopic, Diagnostic (ICD-10-PCS; principal; 2017-07-20)
DX: M86.171 Other acute osteomyelitis, right ankle and foot (principal); A41.9 Sepsis, unspecified organism; E87.0 Hyperosmolality and hypernatremia; E11.65 Type 2 diabetes mellitus with hyperglycemia; E11.621 Type 2 diabetes mellitus with foot ulcer; L97.509 Non-pressure chronic ulcer of other part of unspecified foot with unspecified severity; E11.69 Type 2 diabetes mellitus with other specified complication; L08.9 Local infection of the skin and subcutaneous tissue, unspecified; K21.9 Gastro-esophageal reflux disease without esophagitis; K29.70 Gastritis, unspecified, without bleeding; Z79.4 Long term (current) use of insulin; R10.13 Epigastric pain; R13.10 Dysphagia, unspecified; R19.7 Diarrhea, unspecified
CPT/HCPCS: 00740; 36000; 36415; 36600; 51702; 71010; 73630; 73720; 80048; 80053; 80202; 82375; 82803; 82947; 82962; 83036; 83605; 83735; 84100; 84484; 85025; 85027; 85610; 87040; 87070; 87077; 87086; 87186; 87493; 87631; 88305; 93005; 93041; 94760; 96360; 96361; 96365; 96367; 96374; 99285; G0008; J0692; J1650; J1815; J2405; J2543; J2704; J3370; J3480; 90682; A9270-GY

== ENCOUNTER 2017-07-22 09:39 | Inpatient (IN) | payer MEDICARE ==
[2017-07-22] MEDS ORDERED: VANCOCIN 1 GM VIAL*** 1 GM in Sodium Chloride 0.9% 250 ML 250 ML IV SCH (10:58)
[2017-07-22] MEDS ORDERED: CEPACOL SORE THROAT LOZENGE PO PRN (10:58)
[2017-07-22] MEDS ORDERED: Klonopin 0.5 MG PO PRN (10:58)
[2017-07-22] MEDS ORDERED: Tums EX 750 MG PO PRN (10:58)
[2017-07-22] MEDS: NovoLOG Insulin SQ SCH ×2 (11:05→16:01)
[2017-07-22] MEDS: NovoLOG Insulin SQ PRN ×3 (11:06→21:42)
[2017-07-22] MEDS: Nystatin SUSPENSION 60 ML PO SCH ×3 (12:17→21:37)
[2017-07-22] MEDS: NEURONTIN 300 MG PO SCH ×2 (14:33→21:37)
[2017-07-22] MEDS: VANCOCIN 1 GM VIAL*** 1 GM in Sodium Chloride 0.9% 250 ML 250 ML IV SCH (17:09)
[2017-07-22] MEDS: TYLENOL 325 MG PO PRN (17:14)
[2017-07-22] MEDS: ZOCOR 20MG PO SCH (21:37)
[2017-07-22] MEDS: Lantus Insulin SQ SCH (21:42)
[2017-07-22] MEDS: Maxipime 2 GM** 2 G in Dextrose 5%/Water IV Soln. 100ML PLUS BAG 100 ML IV SCH (22:06)
[2017-07-23] MEDS: VANCOCIN 1 GM VIAL*** 1 GM in Sodium Chloride 0.9% 250 ML 250 ML IV SCH ×2 (05:25→16:57)
[2017-07-23] MEDS: NovoLOG Insulin SQ SCH ×3 (07:29→16:57)
[2017-07-23] MEDS: NovoLOG Insulin SQ PRN ×2 (07:30→22:37)
[2017-07-23] MEDS ORDERED: Aplisol ID SCH (10:00)
[2017-07-23] MEDS: Levofloxacin 500 MG Tablet PO SCH (10:21)
[2017-07-23] MEDS: NEURONTIN 300 MG PO SCH ×3 (10:21→22:35)
[2017-07-23] MEDS: Maxipime 2 GM** 2 G in Dextrose 5%/Water IV Soln. 100ML PLUS BAG 100 ML IV SCH ×2 (10:21→22:34)
[2017-07-23] MEDS: Levofloxacin 250MG Tablet PO SCH (10:21)
[2017-07-23] MEDS: PROTONIX 40 MG IV IV SCH (10:21)
[2017-07-23] MEDS: Singulair 10 MG PO SCH (10:21)
[2017-07-23] MEDS: Lantus Insulin SQ SCH ×2 (10:22→22:37)
[2017-07-23] MEDS: ENOXAPARIN SODIUM SQ SCH (10:22)
[2017-07-23] MEDS: Nystatin SUSPENSION 60 ML PO SCH ×4 (10:29→22:36)
[2017-07-23] MEDS: ZOCOR 20MG PO SCH (22:35)
[2017-07-24] MEDS: VANCOCIN 1 GM VIAL*** 1 GM in Sodium Chloride 0.9% 250 ML 250 ML IV SCH ×2 (06:39→17:24)
[2017-07-24] MEDS: NovoLOG Insulin SQ SCH ×3 (07:54→16:40)
[2017-07-24] MEDS: NovoLOG Insulin SQ PRN ×4 (07:54→22:58)
[2017-07-24] MEDS: Levofloxacin 500 MG Tablet PO SCH (10:00)
[2017-07-24] MEDS: Levofloxacin 250MG Tablet PO SCH (10:00)
[2017-07-24] MEDS: NEURONTIN 300 MG PO SCH ×3 (10:00→22:57)
[2017-07-24] MEDS: TYLENOL 325 MG PO PRN (10:00)
[2017-07-24] MEDS: Singulair 10 MG PO SCH (10:00)
[2017-07-24] MEDS: ENOXAPARIN SODIUM SQ SCH (10:01)
[2017-07-24] MEDS: PROTONIX 40 MG IV IV SCH (10:01)
[2017-07-24] MEDS: Lantus Insulin SQ SCH ×2 (10:01→22:57)
[2017-07-24] MEDS: Nystatin SUSPENSION 60 ML PO SCH ×4 (10:03→22:57)
[2017-07-24] MEDS: Maxipime 2 GM** 2 G in Dextrose 5%/Water IV Soln. 100ML PLUS BAG 100 ML IV SCH ×2 (10:14→22:57)
[2017-07-24] MEDS: ZOCOR 20MG PO SCH (22:57)
[2017-07-25] MEDS: VANCOCIN 1 GM VIAL*** 1 GM in Sodium Chloride 0.9% 250 ML 250 ML IV SCH ×2 (05:04→17:57)
[2017-07-25] MEDS: NovoLOG Insulin SQ PRN ×2 (07:55→20:57)
[2017-07-25] MEDS: NovoLOG Insulin SQ SCH ×3 (07:55→16:46)
[2017-07-25] MEDS: Levofloxacin 250MG Tablet PO SCH (09:11)
[2017-07-25] MEDS: Singulair 10 MG PO SCH (09:11)
[2017-07-25] MEDS: Nystatin SUSPENSION 60 ML PO SCH ×4 (09:11→20:55)
[2017-07-25] MEDS: ENOXAPARIN SODIUM SQ SCH (09:11)
[2017-07-25] MEDS: NEURONTIN 300 MG PO SCH ×3 (09:11→20:55)
[2017-07-25] MEDS: Maxipime 2 GM** 2 G in Dextrose 5%/Water IV Soln. 100ML PLUS BAG 100 ML IV SCH ×2 (09:11→20:57)
[2017-07-25] MEDS: Levofloxacin 500 MG Tablet PO SCH (09:11)
[2017-07-25] MEDS: PROTONIX 40 MG IV IV SCH (09:11)
[2017-07-25] MEDS: Lantus Insulin SQ SCH ×2 (09:12→20:56)
[2017-07-25] MEDS: TYLENOL 325 MG PO PRN (14:12)
[2017-07-25] MEDS: ZOCOR 20MG PO SCH (20:56)
[2017-07-26] MEDS ORDERED: TROUGH DRUG LEVELS IJ ONE (05:30)
[2017-07-26] MEDS: VANCOCIN 1 GM VIAL*** 1 GM in Sodium Chloride 0.9% 250 ML 250 ML IV SCH ×2 (05:32→17:43)
[2017-07-26] MEDS: TYLENOL 325 MG PO PRN (05:32)
[2017-07-26] MEDS: NovoLOG Insulin SQ SCH ×3 (08:01→16:28)
[2017-07-26] MEDS: NEURONTIN 300 MG PO SCH ×3 (09:47→21:46)
[2017-07-26] MEDS: Levofloxacin 500 MG Tablet PO SCH (09:47)
[2017-07-26] MEDS: Levofloxacin 250MG Tablet PO SCH (09:48)
[2017-07-26] MEDS: Singulair 10 MG PO SCH (09:48)
[2017-07-26] MEDS: ENOXAPARIN SODIUM SQ SCH (09:49)
[2017-07-26] MEDS: Maxipime 2 GM** 2 G in Dextrose 5%/Water IV Soln. 100ML PLUS BAG 100 ML IV SCH ×2 (09:49→21:44)
[2017-07-26] MEDS: Lantus Insulin SQ SCH ×2 (09:53→21:45)
[2017-07-26] MEDS: Nystatin SUSPENSION 60 ML PO SCH ×4 (10:04→21:49)
[2017-07-26] MEDS: PROTONIX 40 MG IV IV SCH (10:05)
[2017-07-26] MEDS: NovoLOG Insulin SQ PRN ×3 (11:25→21:46)
[2017-07-26] MEDS: ZOCOR 20MG PO SCH (21:46)
[2017-07-27] MEDS: VANCOCIN 1 GM VIAL*** 1 GM in Sodium Chloride 0.9% 250 ML 250 ML IV SCH ×2 (05:14→15:56)
[2017-07-27] MEDS: NovoLOG Insulin SQ SCH ×3 (07:45→16:19)
--- NOTE | 2017-07-27 08:58 | PCM.DS ---
Discharge Summary Date of Admission: 07/22/17 10:30 Admitting Physician: DEYVI ARDON Primary Care Provider: DEYVI ARDON Allergies Allergies No Known Drug Allergies Allergy (Verified 07/22/17 11:48) Hospital Summary - Hospital Course Hospital Course: Pt admitted from acute care with osteomyelitis RLE. He was admitted acutely wiht BS > 1300, severe sepsis, with diabetic foot infection (s/p remote amputations). He recovered slowly, on IV vancomycin and cefepime per culture results. Surgery recommended amputation but he wants to f/u with his long-time senior mainframe programmer analyst, Dr. Yadav. I did speak with Dr. Yadav and we are mailing him the CD results of the MRI of RLE. Meir has appt wiht him tomorrow, so will discharge home today. Defer ordering of antibiotic therapy to Dr. Yadav tomorrow. - Vitals & Intake/Output Vital Signs: Vital Signs Temperature 98.5 F 07/27/17 07:28 Pulse Rate 95 H 07/27/17 07:28 Respiratory Rate 20 07/27/17 07:28 Blood Pressure 117/57 07/27/17 07:28 O2 Sat by Pulse Oximetry 93 L 07/27/17 07:28 Intake & Output: Intake & Output 07/24/17 07/25/17 07/26/17 07/27/17 11:59 11:59 11:59 11:59 Intake Total 5191 3506 4099 1920 Output Total 0 Balance 5191 3506 4099 1920 - Lab Lab Results-Last 24 Hrs: Accuchecks Date 07/26/17 Date 07/26/17 Date 07/26/17 Time 22:00 Time 16:30 Time 11:30 Accucheck Value: 142 Accucheck Value: 228 Accucheck Value: 206 Accucheck Value: 179 Micro Results-Entire Visit: Accuchecks Date 07/26/17 Date 07/26/17 Date 07/26/17 Time 22:00 Time 16:30 Time 11:30 Accucheck Value: 142 Accucheck Value: 228 Accucheck Value: 206 Accucheck Value: 179 Discharge Exam General Appearance: no apparent distress, alert Neurologic Exam: oriented x 3, cooperative Skin Exam: normal color, warm, dry Respiratory Exam: normal breath sounds, lungs clear, No crackles/rales, No rhonchi, No wheezing Cardiovascular Exam: regular rate/rhythm, normal heart sounds, No murmur Gastrointestinal/Abdomen Exam: soft, normal bowel sounds Extremity Exam: other (generalized edema RLE with foot wrapped.) Back Exam: normal inspection Final Diagnosis/Problem List - Final Discharge Diagnosis/Problem (1) Osteomyelitis Current Visit: No Status: Acute Assessment & Plan: On IV vancomycin and cefepime here. Dr. Yadav to evaluate tomorrow, thank you! (2) Diabetes mellitus type 2, uncontrolled Current Visit: No Status: Chronic Assessment & Plan: Will send pt home on Lantus and sliding scale - BS around 200 here which is an improvement for him. - Discharge Disposition: Swing Bed @ [facility] Condition: Stable Prescriptions: New Insulin Glargine [Lantus Insulin] 30 unit SQ BID #2 pen Insulin Aspart [NovoLOG Insulin] 8 unit SQ AC 30 Days #1 bottle Continue Clonazepam 0.5 mg [Klonopin 0.5 MG] 1 mg PO TID PRN PRN Reason: Anxiety Pravastatin Sodium 20 mg PO HS Montelukast Sodium [Singulair] 10 mg PO DAILY Gabapentin 300 mg PO TID Fenofibrate Nanocrystallized [Fenofibrate] 1 tab PO DAILY Liraglutide [Victoza 2-Jethro] 1.8 units SQ DAILY Discontinued Insulin Degludec [Tresiba Flextouch U-100] 80 units SQ DAILY Follow up with: DEYVI ARDON [Primary Care Provider] - 1 Week ROBERT YADAV [PODIATRY STAFF] - 07/28/17 9:30 am Forms: Patient Portal Information
[2017-07-27] MEDS: Maxipime 2 GM** 2 G in Dextrose 5%/Water IV Soln. 100ML PLUS BAG 100 ML IV SCH (09:31)
[2017-07-27] MEDS: Levofloxacin 250MG Tablet PO SCH (09:31)
[2017-07-27] MEDS: Levofloxacin 500 MG Tablet PO SCH (09:31)
[2017-07-27] MEDS: Singulair 10 MG PO SCH (09:31)
[2017-07-27] MEDS: ENOXAPARIN SODIUM SQ SCH (09:31)
[2017-07-27] MEDS: NEURONTIN 300 MG PO SCH ×2 (09:31→14:29)
[2017-07-27] MEDS: PROTONIX 40 MG IV IV SCH (09:31)
[2017-07-27] MEDS: Lantus Insulin SQ SCH (09:32)
[2017-07-27] MEDS: Nystatin SUSPENSION 60 ML PO SCH ×3 (09:32→16:19)
[2017-07-27 11:16] VITALS: BP 164/83; PULSE 92; O2SAT 90
[2017-07-27] MEDS: TYLENOL 325 MG PO PRN (12:16)
[2017-07-27] MEDS: NovoLOG Insulin SQ PRN (16:15)
[2017-08-02] MEDS ORDERED: Aplisol ID SCH (10:00)
== END 2017-07-27 17:10 | disposition swing bed (61) | DRG 541 ==
LOC: MED SURG 10:30
PROVIDERS: ADMIT Family Medicine; ATTEND Family Medicine
DX: M86.9 Osteomyelitis, unspecified (principal); E11.65 Type 2 diabetes mellitus with hyperglycemia; Z79.4 Long term (current) use of insulin; F41.8 Other specified anxiety disorders; Z87.891 Personal history of nicotine dependence
CPT/HCPCS: 36415; 80202; 82962; J0692; J1650; J3370; A9270-GY

== ENCOUNTER 2018-09-23 14:18 | Inpatient (IN) | payer MEDICARE ==
[2018-09-23 15:40] LABS: BASOPHIL % 0.7 % (0.0-0.4); Basophil (Absolute #) 0.06 (0-0.4); Eosinophil % 1.3 % (0.00-5.0); Eosinophil (Absolute #) 0.11 (0-0.5); Granulocyte Absolute (ANC) 5.95 (1.4-6.9); Granulocytes % 68.2 % (36.0-66.0); Hematocrit 39.8 % (42-50); Hemoglobin 13.2 gm/dl (12.5-18.0); Lymphocyte (Absolute #) 2.13 (1.0-4.6); Lymphocytes % 24.4 % (24.0-44.0); Mean Cell Volume 84.7 fl (78-100); Mean Corpuscular Hemoglobin 28.1 pg (26-32); Mean Corpuscular Hgb Concent. 33.2 g/dl (32-36); Mean Platelet Volume 10.6 fl (6-9.5); Monocyte (Absolute #) 0.47 (0.0-1.3); Monocytes % 5.4 % (0.0-12.0); Platelet Count 254 K/mm3 (150-450); Red Cell Distribution Width 14.3 % (11.5-14.0); White Blood Count 8.7 K/mm3 (4.0-10.5)
[2018-09-23] MEDS ORDERED: NovoLOG Insulin SQ PRN (15:45)
[2018-09-23 15:59] LABS: Erythrocyte Sedimentation Rate 79 mm/hr (0-15)
[2018-09-23 16:00] LABS: ALKALINE PHOSPHATASE 165 U/L (38-126); ANION GAP 13.9 MEQ/L (5-15); BLOOD UREA NITROGEN 13 mg/dL (9-20); CHLORIDE 89 mmol/L (98-107); CK-Creatinine Phosphokinase 56 U/L (55-170); Calcium 9.7 mg/dL (8.4-10.2); Carbon Dioxide 35 mmol/L (22-30); Creatinine 1 0.72 mg/dL (0.66-1.25); Glucose 288 mg/dL (74-106); SGOT/AST 11 U/L (17-59); SGPT/ALT 11 U/L (0-50); SODIUM 134 mmol/L (137-145); Total Protein 8.3 g/dL (6.3-8.2)
--- NOTE | 2018-09-23 16:37 | XRAY ---
Indication: Weakness. Comparison: July 15, 2017. PA/lateral chest better inflated today with new subtle right middle lobe discoid atelectasis/scarring. Remaining heart, lungs, and bony thorax unremarkable.
--- NOTE | 2018-09-23 16:43 | XRAY ---
Indication: Lower extremity weakness. Multiple contiguous axial images obtained through the lumbar spine. Sagittal and coronal reformatted images obtained. Comparison: None Axial images through the T12-L3 levels are negative for disc herniation, spinal canal, or foraminal stenosis. Facets are symmetric. At the L3-S1 levels, there is minimal/mild broad-based disc bulge minimally effacing the thecal sac and producing bilateral foraminal narrowing. No obvious disc herniation or canal stenosis. Facets are symmetric with minimal L4-L5 degenerative facet arthropathy. Sagittal and coronal reformatted images demonstrate normal lumbar alignment and mild L5-S1 disc space narrowing. No acute compression fracture or subluxation. Visualized noncontrasted soft tissues unremarkable. Impression: 1. L3-S1 degenerative disc bulge with subsequent bilateral foraminal narrowing. 2. Remaining CT lumbar spine is negative. CTDI 36.08
[2018-09-23] MEDS ORDERED: PHARMACY DOSING REQUIRED: VANCOMYCIN IV ONE (17:27)
[2018-09-23] MEDS: Lactated Ringers 1,000 ML IV SCH (18:16)
[2018-09-23] MEDS: VANCOCIN 1 GM VIAL*** 1 GM in Sodium Chloride 0.9% 250 ML 250 ML IV SCH (18:16)
[2018-09-23] MEDS: NovoLOG Insulin SQ PRN (20:57)
[2018-09-23] MEDS ORDERED: ENOXAPARIN SODIUM SQ SCH (22:00)
[2018-09-24] MEDS: Lactated Ringers 1,000 ML IV SCH ×2 (03:41→15:07)
[2018-09-24] MEDS: VANCOCIN 1 GM VIAL*** 1 GM in Sodium Chloride 0.9% 250 ML 250 ML IV SCH ×2 (06:24→17:10)
--- NOTE | 2018-09-24 08:20 | XRAY ---
Indication: Diabetic ulcer. Comparison: None 3 nonweightbearing views of the left foot demonstrates large heel spurs, partial calcification of the plantar aponeurosis from old injury/inflammation, and mild forefoot soft tissue swelling. No other bony, articular, or soft tissue abnormalities.
--- NOTE | 2018-09-24 08:22 | XRAY ---
Indication: Diabetes. Possible osteomyelitis. Comparison: None 3 portable views of the right foot demonstrates midfoot amputation, mild osteopenia, moderate heel spurs, partial calcification of the plantar aponeurosis presumed from old injury/inflammation, and faint vascular calcifications. No other bony, articular, or soft tissue abnormalities.
[2018-09-24] MEDS: NovoLOG Insulin SQ PRN ×3 (08:44→20:54)
[2018-09-24] MEDS ORDERED: FLUZONE QUAD (36mo-64yo) 2018-2019 SYRINGE IM ONE (10:00)
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
[2018-09-24 17:06] LABS: Appearance CLEAR (CLEAR); Bilirubin NEGATIVE (NEGATIVE); Blood NEGATIVE Ery/ul (0-5); Glucose >=500 mg/dL (NEGATIVE); Ketones NEGATIVE (NEGATIVE); Leukocyte Esterase NEGATIVE (NEGATIVE); Nitrite NEGATIVE (NEGATIVE); Protein,Urine Dip 30 (Negative); Specific Gravity 1.026 (1.005-1.025); Urobilinogen NEGATIVE mg/dL (0-1)
[2018-09-24 17:21] LABS: Barbiturate,Urine NEGATIVE (NEGATIVE); Benzodiazepine,Urine NEGATIVE (NEGATIVE); Cocaine,Urine NEGATIVE (NEGATIVE); Methadone,Urine NEGATIVE (NEGATIVE); Opiate,Urine NEGATIVE (NEGATIVE); PCP,Urine NEGATIVE (NEGATIVE); THC,Urine NEGATIVE (NEGATIVE)
[2018-09-24 17:48] LABS: Amphetamine,Urine POSITIVE (NEGATIVE)
[2018-09-24] MEDS ORDERED: ENOXAPARIN SODIUM SQ SCH (22:00)
[2018-09-25] MEDS ORDERED: Vancomycin 1GM/ Ns 250ML*** 250 ML IV ONE (05:22)
[2018-09-25] MEDS: Lactated Ringers 1,000 ML IV SCH ×2 (05:28→14:24)
[2018-09-25] MEDS: VANCOCIN 1 GM VIAL*** 1 GM in Sodium Chloride 0.9% 250 ML 250 ML IV SCH (05:54)
[2018-09-25] MEDS: NovoLOG Insulin SQ PRN ×3 (10:11→16:29)
[2018-09-25] MEDS ORDERED: Lantus Insulin SQ ONE (11:00)
--- NOTE | 2018-09-25 15:39 | PCM.DS ---
Discharge Summary Date of Admission: 09/23/18 14:25 Admitting Physician: DEYVI ARDON Consults: Consults on Case 09/23/18 14:51 Consult Surgery ROUTINE 09/23/18 15:02 Tele-Health Consult ROUTINE 09/23/18 18:43 Consult Neurology ROUTINE Primary Care Provider: DEYVI ARDON Allergies Allergies No Known Drug Allergies Allergy (Verified 07/22/17 11:48) Hospital Summary - Hospital Course Hospital Course: Pt is 47 yo uncontrolled diabetic who was admitted from the office with new profound muscle weakness in LE and hands, weight loss, abscess on posterior scalp, and minor diabetic foot wound. Teleneurology was consulted and was concerned for ALS or for possible immune mediated issue - pt needs MRI, EMG, and possibly LP which are not available at our facility. They recommended transfer. Pt is on IV vancomycin for scalp abscess and for LLE diabetic foot wound. 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 Pt very reluctant to come to the doctor or hospital, but does agree now to transfer to after watching football on TV this afternoon. Dr. Lopez to accept the patient, thank you. - Vitals & Intake/Output Vital Signs: Vital Signs Temperature 98.2 F 09/25/18 12:00 Pulse Rate 109 H 09/25/18 12:00 Respiratory Rate 18 09/25/18 12:00 Blood Pressure 139/78 09/25/18 12:00 O2 Sat by Pulse Oximetry 94 L 09/25/18 12:00 Intake & Output: Intake & Output 09/23/18 09/24/18 09/25/18 09/26/18 11:59 11:59 11:59 11:59 Intake Total 1296 4040 720 Output Total 1140 1850 Balance 156 2190 720 Weight 81.1 kg - Lab Result Diagrams: 09/23/18 14:45 09/23/18 15:30 Lab Results-Last 24 Hrs: Accuchecks Date 09/24/18 Date 09/24/18 Date 09/24/18 Date 09/24/18 Time 11:15 Time 10:11 Time 21:01 Time 16:52 Accucheck Value: 191 Accucheck Value: 427 Lab Results-Last 24 Hours 09/24/18 09/24/18 09/25/18 Range/Units 17:00 17:00 08:00 Glucose 458 H (74-106) mg/dL Urine Color YELLOW (YELLOW) Urine Appearance CLEAR (CLEAR) Urine pH 7.0 (5-6) Ur Specific [place] 1.026 (1.005-1.025) Urine Protein 30 (Negative) Urine Ketones NEGATIVE (NEGATIVE) Urine Blood NEGATIVE (0-5) Ronald/ul Urine Nitrite NEGATIVE (NEGATIVE) Urine Bilirubin NEGATIVE (NEGATIVE) Urine Urobilinogen NEGATIVE (0-1) mg/dL Ur Leukocyte Esterase NEGATIVE (NEGATIVE) Urine WBC (Auto) NONE (0-5) /HPF Urine RBC (Auto) NONE (0-2) /HPF U Epithel Cells (Auto) NONE (FEW) /HPF Urine Bacteria (Auto) NONE SEEN (NEGATIVE) /HPF Urine Mucus (Auto) SLIGHT (NEGATIVE) /HPF Urine Culture Reflexed NO (NO) Urine Glucose >=500 (NEGATIVE) mg/dL Urine Opiates Level NEGATIVE (NEGATIVE) Ur Methadone NEGATIVE (NEGATIVE) Urine Barbiturates NEGATIVE (NEGATIVE) Ur Phencyclidine (PCP) NEGATIVE (NEGATIVE) Urine Amphetamine POSITIVE (NEGATIVE) U Benzodiazepine Level NEGATIVE (NEGATIVE) Urine Cocaine NEGATIVE (NEGATIVE) Urine Marijuana (THC) NEGATIVE (NEGATIVE) Micro Results-Entire Visit: Accuchecks Date 09/24/18 Date 09/24/18 Date 09/24/18 Date 09/24/18 Time 11:15 Time 10:11 Time 21:01 Time 16:52 Accucheck Value: 191 Accucheck Value: 427 - Radiology Exams Ordered Rad Exams-Entire Visit: Radiology Procedures Category Date Time Status CHEST 2 VIEWS (PA AND LAT) Routine Exams 09/23/18 15:30 Completed FOOT (MINIMUM 3 VIEWS) Routine Exams 09/23/18 17:30 Completed FOOT (MINIMUM 3 VIEWS) Routine Exams 09/23/18 17:31 Completed LUMBAR SPINE W/O [CT] Routine Exams 09/23/18 15:30 Completed - Procedures and Test Procedures and Tests throughout Hospitalization: Therapy Orders & Screens 09/23/18 14:51 PT Eval & Treat ( Order) ROUTINE Reason for Eval:: Weakness, abscess back of head, left diabetic foot ulcer Diagnosis: ABSCESS BACK OF HEAD, LEFT DIABETIC FOOT ULCER, DM - OOC 09/23/18 17:27 OT Screen per Nursing Assess Comment: Protocol Order Physician Instructions: Greater than 3 points order OT Admission Screening Reason For Exam: Triggered on Admission Diagnosis: ABSCESS BACK OF HEAD, LEFT DIABETIC FOOT ULCER, DM - OOC Open Wound/Cellutlitis/Pressure Ulcers: Yes Acute Fx/ORIF/Change in wt bearing status: Yes Severe MUSCULOSKELETAL pain: No ADL Dysfunction: Yes Acute CVA w/Hemiparesis/Hemiplegia: No Decreased Functional Mobility/Strength: Yes Sprain/Strain: No Acute Post-op Mobility Dysfunction: No Total Points: 14 PT Screen per Nursing Assess ONCE Comment: Protocol Order Physician Instructions: Greater than 3 points order PT Admission Screenin Reason For Exam: Triggered on Admission Diagnosis: ABSCESS BACK OF HEAD, LEFT DIABETIC FOOT ULCER, DM - OOC Open Wound/Cellutlitis/Pressure Ulcers: Yes Acute Fx/ORIF/Change in wt bearing status: Yes Severe MUSCULOSKELETAL pain: No ADL Dysfunction: Yes Acute CVA w/Hemiparesis/Hemiplegia: No Decreased Functional Mobility/Strength: Yes Sprain/Strain: No Acute Post-op Mobility Dysfunction: No Total Points: 14 Discharge Exam General Appearance: no apparent distress, alert Neurologic Exam: oriented x 3, cooperative Skin Exam: normal color, warm, dry, other (posterio L occiput approx 5x4cm fluctuant mass, no erythema, no active drainage, nttp.), No rash Respiratory Exam: normal breath sounds, lungs clear, No crackles/rales, No rhonchi, No wheezing Cardiovascular Exam: regular rate/rhythm, normal heart sounds, No murmur Gastrointestinal/Abdomen Exam: soft, normal bowel sounds, No tenderness, No distention, No mass, No guarding, No rebound Extremity Exam: other (strength 2/5 in LE bilat) Back Exam: normal inspection, No rash Final Diagnosis/Problem List - Final Discharge Diagnosis/Problem (1) Muscle weakness Current Visit: Yes Status: Acute Assessment & Plan: CT lumbar spine L3-S1 disc bulge with foraminal narrowing. Needs MRI and EMG, with possible lumbar puncture. Has been bedridden for the past few weeks, with someone assisting him out of bed to wheelchair at home and pt transferring self to bedside commode. Had to be lifted from van to wheelchair at our office. (2) Muscle atrophy Current Visit: Yes Status: Acute (3) Weight loss Current Visit: Yes Status: Acute Assessment & Plan: Has lost 31 lb since March 2018, and 64 lb total since Oct 2017. (4) Abscess Current Visit: Yes Status: Acute Assessment & Plan: on IV vancomycin. Dr. Hughes had planned an I&D for in the morning; I'm sure he would be happy to consult on the patient at as well. (5) Diabetes mellitus type 2, uncontrolled Current Visit: No Status: Chronic Assessment & Plan: A1c > 14. 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 Restarting Lantus at 25 units daily (last 24 hours he received 53 units in coverage) with 10 units with meals. I did let him have a regular diet since 1. I wanted to see what his BS run at home, and 2. I was unsure if he'd been eating well, having been bedridden at home, and thought he may need the calories. (6) Noncompliance Current Visit: Yes Status: Acute Assessment & Plan: Has voiced understanding of how to take his medicine in the past, but can never afford strips to test, doesn't have a ride to come in, can't afford his medicine , etc. He was very afraid to come to the doctor - and afraid to come to the hospital - perhaps the positive urine drug screen plays a part. He doesn't want to be in [place] as he says he will have no visitors there - but he agrees to go, at my urging, in order to get a diagnosis. (7) Learning disabilities Current Visit: Yes Status: Acute Assessment & Plan: I am unsure his IQ; he does live "on his own" but there is always someone living with him. (8) Positive urine drug screen Current Visit: Yes Status: Acute Assessment & Plan: He denies any use of methamphetamin or any known use by housemates. Seems genuine. Has been picking up syringes, as noted above, and I wonder if these are for benefit of housemates or "friends." - Discharge Disposition: Home, Self-Care Condition: Stable Prescriptions: No Action Insulin Glargine [Lantus Insulin] 30 unit SQ BID #2 pen Insulin Aspart [NovoLOG Insulin] 10 unit SQ AC Follow up with: DEYVI ARDON [Primary Care Provider] - 1 Week
--- NOTE | 2018-09-25 16:01 | PCM.DCORD ---
- Discharge Disposition: DC TO [facility] Condition: Stable Prescriptions: No Action Insulin Glargine [Lantus Insulin] 30 unit SQ BID #2 pen Insulin Aspart [NovoLOG Insulin] 10 unit SQ AC Follow up with: DEYVI ARDON [Primary Care Provider] - 1 Week
[2018-09-25] MEDS ORDERED: NovoLOG Insulin SQ SCH (16:30)
[2018-09-25 17:11] VITALS: BP 138/81; PULSE 97; O2SAT 92
[2018-09-26] MEDS ORDERED: TROUGH DRUG LEVELS IJ ONE (05:30)
--- NOTE | 2018-09-26 10:56 | CONS ---
CONSULT DATE: 09/24/2018 HISTORY: Meir Mac was seen at the bedside. He has a partial amputation of the right foot on the left side. There is infection at the base of the left fifth toe. It is not purulent. It is not fluctuant. It is pink, slightly edematous extends into the web space between the fourth and fifth from on palmar aspect. It does not seem to be creeping up the tendon either flexor or extensor. It is concerning but at this time he needs IV antibiotics and observation. There is an area on the back of the scalp this is fluctuant but he has had this before. It is draining. At some point I think this needs opened up wider. He can be continued on his IV antibiotics and come Wednesday decision can be made.
[2018-09-26 13:36] LABS: RPR Screen Non Reactive (Non Reactive)
[2018-09-26 13:42] LABS: ANA Interpretation See Result Note:
== END 2018-09-25 18:00 | disposition home or self-care (01) | DRG 556 ==
LOC: MED SURG 14:25
PROVIDERS: ADMIT Family Medicine; ATTEND Family Medicine
DX: M62.81 Muscle weakness (generalized) (principal); L02.811 Cutaneous abscess of head [any part, except face]; A49.02 Methicillin resistant Staphylococcus aureus infection, unspecified site; M62.50 Muscle wasting and atrophy, not elsewhere classified, unspecified site; R63.4 Abnormal weight loss; E11.621 Type 2 diabetes mellitus with foot ulcer; L97.529 Non-pressure chronic ulcer of other part of left foot with unspecified severity; E11.65 Type 2 diabetes mellitus with hyperglycemia; Z91.19 Patient's noncompliance with other medical treatment and regimen; F81.9 Developmental disorder of scholastic skills, unspecified; Z02.83 Encounter for blood-alcohol and blood-drug test
CPT/HCPCS: 36415; 71046; 72131; 73630; 80053; 80307; 81001; 82550; 82947; 82962; 83036; 85025; 85652; 86038; 86140; 86160; 86430; 86592; 86593; 86780; 97161; G0008; 90686; J1650; J3370; A9270-GY

== ENCOUNTER 2020-08-18 13:33 | Emergency (ER) | payer MEDICARE ==
--- NOTE | 2020-08-18 14:26 | ERPHSYRPT ---
- History of Present Illness Time Seen by Provider: 08/18/20 13:53 Source: patient Exam Limitations: no limitations Patient Subjective Stated Complaint: foot wound Triage Nursing Assessment: pt to ED c/o R foot wound. reports diabetic ucler to foot approx size of half dollar. has part of foot and all toes amputated to R foot. also above the knee amputee to L extremity. denies pain d/t neuropathy. reports a nurse friend came to house yesterday and recommended he go to the hospital. Physician History: 49 years old diabetic with left below-knee amputation and toe amputation is on the right presented in the ER for evaluation right foot ulcer for the last few weeks to months. Denies any pain, discharge, redness, fever or chills. He has been doing daily dressing changes and blood sugar is staying in mid 100. Sofía ent came to ER because one of her RN friend looked at wound yesterday and it appeared red and was worried about getting infected. Timing/Duration: week(s), gradual onset, worse Severity: moderate Location: feet Possible Causes: other Allergies/Adverse Reactions: No Known Drug Allergies Allergy (Verified 07/22/17 11:48) Home Medications: Insulin Aspart [NovoLOG Insulin] 10 unit SQ AC 09/23/18 [History] Hx Tetanus, Diphtheria Vaccination/Date Given: Yes Hx Influenza Vaccination/Date Given: Yes Hx Pneumococcal Vaccination/Date Given: Yes Travel Risk - International Travel Have you traveled outside of the country in past 3 weeks: No - Coronavirus Screening Are you exhibiting any of the following symptoms?: No Close contact with a COVID-19 positive Pt in past 14-21 Days: No - Review of Systems Constitutional: No Symptoms Eyes: No Symptoms Ears, Nose, & Throat: Nose Pain Respiratory: No Symptoms Cardiac: No Symptoms Abdominal/Gastrointestinal: No Symptoms Genitourinary Symptoms: No Symptoms Skin: Skin Lesions Neurological: Parasthesia, Sensory Changes Psychological: No Symptoms Hematologic/Lymphatic: No Symptoms Immunological/Allergic: No Symptoms - Past Medical History Pertinent Past Medical History: Yes Neurological History: Peripheral Neuropathy ENT History: No Pertinent History Cardiac History: Hypertension, Peripheral Vascular Disease Respiratory History: Pneumonia Endocrine Medical History: Diabetes Type II Musculoskeletal History: Other GI Medical History: Polyps History: No Pertinent History Psycho-Social History: Anxiety, Depression, Panic Disorder Male Reproductive Disorders: Other Other Medical History: RIGHT FOREFOOT AMPUTATION 2014. L lower extremity amputated - Past Surgical History Past Surgical History: Yes Neuro Surgical History: No Pertinent History Cardiac: No Pertinent History Respiratory: No Pertinent History Gastrointestinal: No Pertinent History Genitourinary: No Pertinent History Musculoskeletal: Amputation Male Surgical History: No Pertinent History Other Surgical History: Right heel cut open down to the bone. Right forefoot amputation. - Social History Smoking Status: Never smoker How long have you smoked: years ago Exposure to second hand smoke: Yes Drug Use: none Patient Lives Alone: Yes - Nursing Vital Signs Nursing Vital Signs: Initial Vital Signs Temperature 98.2 F 08/18/20 13:57 Pulse Rate 110 H 08/18/20 13:57 Respiratory Rate 18 08/18/20 13:57 Blood Pressure 142/94 08/18/20 13:57 O2 Sat by Pulse Oximetry 99 08/18/20 13:57 Pain Scale Pain Intensity 0 - Physical Exam General Appearance: no apparent distress Eye Exam: eyes nml inspection Ears, Nose, Throat Exam: pharynx normal Neck Exam: normal inspection, supple, full range of motion Respiratory Exam: normal breath sounds, lungs clear Cardiovascular Exam: normal heart sounds, tachycardia Back Exam: normal inspection, normal range of motion Extremity Exam: other (Left below-knee amputation. Right all toe amputations. 4 x 3 cm area with a loss of skin with good granulation tissue. No induration redness or erythema around. No discharge.) Neurologic Exam: alert, oriented x 3, cooperative Skin Exam: normal color SpO2 Interpretation: normal SpO2: 99 O2 Delivery: Room Air - Progress Progress: unchanged Progress Note: 08/18/20 I did not appreciate any signs of infection. Has good granulation tissue. I believe patient has chronic diabetic ulcer, recommended outpatient podiatry follow-up. Do not think patient needs antibiotic and any work-up and is stable for discharge. - Departure Departure Disposition: Home Clinical Impression: Diabetic foot ulcer Qualifiers: Diabetic foot ulcer location: midfoot Diabetes mellitus type: due to underlying condition Laterality: right Non-pressure ulcer stage: with muscle involvement without evidence of necrosis Qualified Code(s): E08.621 - Diabetes mellitus due to underlying condition with foot ulcer Condition: Stable Critical Care Time: No Referrals: DEYVI GAMEZ [Primary Care Provider] - Follow Up with PCP/3 days PHOEN[place] TAY NP [NON-STAFF PHY W/O PRIVILEGES] - (podiatry for tomorrow evaluation) Instructions: Diabetic Foot Ulcer (DC) Additional Instructions: Keep it clean, on daily dressing change. Follow-up with podiatry Dr. Friedman for reevaluation tomorrow. Return to ER for redness, discharge, fever chills etc. Forms: Ortho Referral
[2020-08-18 14:39] VITALS: BP 165/87; PULSE 104
[2020-08-18 14:53] VITALS: O2SAT 99
== END 2020-08-18 15:02 | disposition home or self-care (01) ==
LOC: ED 13:33
DX: E11.621 Type 2 diabetes mellitus with foot ulcer (principal); Z89.512 Acquired absence of left leg below knee; I10 Essential (primary) hypertension; I73.9 Peripheral vascular disease, unspecified; Z79.899 Other long term (current) drug therapy
CPT/HCPCS: 99283